=== PATIENT | female | born 2005 | race Caucasian/White ===

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

== ENCOUNTER 2025-02-19 08:41 | Emergency (ER) | payer OTHER, SELFPAY ==
--- NOTE | 2025-02-19 08:44 | ED.EAR ---
HPI - Ear Problem General Chief complaint: Ear Stated complaint: Ears Irritation Time Seen by Provider: 02/19/25 09:20 Source: patient, RN notes reviewed and old records reviewed Mode of arrival: ambulatory Limitations: no limitations History of Present Illness HPI Narrative: 20-year-old female presents to the [facility] with left ear burning, decreased hearing, irritation. Left ear started on Wednesday, 3 days ago, right ear started with similar symptoms yesterday. No treatment prior to arrival. Patient does use Q-tips Related Data Home Medications ?Medication ?Instructions ?Recorded ?Confirmed ?Last Taken ?Type insulin lispro 100 unit/mL 100 sliding scale dose subcut DAILY 07/19/22 07/25/23 Unknown History subcutaneous cartridge (Humalog U-100 Insulin) pantoprazole 40 mg tablet,delayed 40 mg PO DAILY 07/19/22 07/25/23 Unknown History release fluoxetine 40 mg capsule 40 mg PO DAILY 11/13/22 07/25/23 Unknown History amitriptyline 100 mg tablet mg 09/28/23 Unknown History norethindrone (contraceptive) 0.35 mg 02/19/25 Unknown History mg tablet Allergies Allergy/AdvReac Type Severity Reaction Status Date / Time adhesive tape Allergy Rash Verified 09/28/23 13:06 Review of Systems Review of Systems: All systems reviewed & are unremarkable except as noted in HPI and below Constitutional: Constitutional: Reports no additional constitutional complaints ENT: Reports as per HPI Cardiovascular: Cardiovascular: Reports no additional cardiovascular complaints, Denies chest pain and Denies dyspnea Respiratory: Respiratory: Reports no additional respiratory complaints, Denies chest congestion, Denies cough and Denies dyspnea Musculoskeletal: Musculoskeletal: Reports no additional musculoskeletal complaints Integumentary/Breasts: Skin/Breast: Reports system reviewed and no additional complaints, except as docu PMF Past Medical History Medical History Diabetes type I Surgical History Surgical History History of appendectomy History of exploratory laparotomy Social History Social History Living arrangements: with family Gender identity (if verbalized by the patient): Female Comments At the time of my signature, I reviewed and agree with the nursing past medical, surgical, social, and family history. There is no relevant family history pertinent to the patient complaint. Exam Const: General: cooperative, healthy appearing, comfortable, no acute distress, well developed, alert and well nourished Nutritional Appearance: well nourished Orientation/consciousness: patient oriented x3 Limitations: no limitations HENMT: Head: normal to inspection Ears: hearing grossly normal bilaterally, external ears normal, TM's normal bilaterally and Abnormal EAC present erythema bilateral, edema on the left and EAC tenderness on the left; no foreign body and no otic discharge Mouth: Yes Normal oral and palatal mucosa present, Yes lip normal, Yes tongue normal and Yes moist mucous membranes Throat: posterior oropharynx normal, uvula midline and no uvular edema Eyes: General: appearance normal, both eyes and all related structures Alignment and Position: alignment normal Neck: Neck: normal visual inspection, full ROM, no lymphadenopathy and no meningeal signs Chest: Chest palpation & inspection: normal inspection of the chest Resp: Effort & Inspection: normal respiratory effort and able to speak in complete sentences Auscultation: clear to auscultation bilaterally, no crackles, no rales, no rhonchi and no wheezes Cardio: Rate: regular rate Skin: General skin exam: normal color and no rashes or lesions noted Neuro: General: patient oriented x3, gait normal, moves all extremities and no meningeal signs Cognition (Neuro): normal cognition Speech: normal speech Gait exam (Neuro): Normal gait present Extrem: General: normal to inspection, full ROM, capillary refill normal and normal gait Psych: Appearance: grossly normal and well kempt Mental Status: mental status grossly normal Speech and movement: Normal speech and movement present and Clear speech present Affect: normal affect Attitude: cooperative Course Course Level of Care: Express Care Visit Vital Signs Vital signs: Vital Signs Temperature 97.2 F L 02/19/25 08:54 Pulse Rate 89 02/19/25 08:54 Respiratory Rate 16 02/19/25 08:54 Blood Pressure 114/62 02/19/25 08:54 Pulse Oximetry 100 02/19/25 08:54 Oxygen Delivery Room Air 02/19/25 08:54 Temperature 97.2 F L 02/19/25 08:54 Pulse Rate 89 02/19/25 08:54 Respiratory Rate 16 02/19/25 08:54 Blood Pressure 114/62 02/19/25 08:54 Pulse Oximetry 100 02/19/25 08:54 Oxygen Delivery Room Air 02/19/25 08:54 Reviewed Medical Decision Making MDM Narrative Medical decision making narrative: Patient sitting comfortably in exam room. Nontoxic, vitals stable. Patient in no acute distress Patient presents for left ear discomfort, dryness and mild erythema, mild edema noted to the ear canal. TMs are within normal limits. Patient appropriate for outpatient treatment with early otitis externa, will prescribed ear drops. Discussed not putting anything in her ears. Discharge instructions reviewed with patient, as well as provided in writing per nursing staff. The instructions also include specific and strict return/GO TO THE ER as well as f/u information. All questions have been answered, and the patient deny any further questions with discharge and discharge plan. Some parts of this dictation were generated by voice recognition software and may contain typographical and/or grammatical inaccuracies. Differential Diagnosis Differential Diagnosis: Otitis media, serous otitis, otitis externa Medical Records Medical records reviewed: Yes I reviewed the external patient's medical records. Vital Signs Vital Signs: Vital Signs Temperature 97.2 F L 02/19/25 08:54 Pulse Rate 89 02/19/25 08:54 Respiratory Rate 16 02/19/25 08:54 Blood Pressure 114/62 02/19/25 08:54 Pulse Oximetry 100 02/19/25 08:54 Oxygen Delivery Room Air 02/19/25 08:54 Temperature 97.2 F L 02/19/25 08:54 Pulse Rate 89 02/19/25 08:54 Respiratory Rate 16 02/19/25 08:54 Blood Pressure 114/62 02/19/25 08:54 Pulse Oximetry 100 02/19/25 08:54 Oxygen Delivery Room Air 02/19/25 08:54 Reviewed Lab Data Lab results reviewed: Yes I reviewed the patient's lab results. Labs: Reviewed Critical Care Time Critical Care Time Critical Care Time: No Discharge Plan Discharge Clinical Impression: Otitis externa Qualifiers: Otitis externa type: unspecified type Chronicity: acute Laterality: left Qualified Code(s): H60.502 - Unspecified acute noninfective otitis externa, left ear Patient Disposition: Home Condition: Stable Instructions: Antibiotic Form, Swimmer's Ear (ED), Earache (ED) Additional Instructions: Do not put anything in your ears especially Q-tips. Avoid wearing ear buds. Use ear drops as prescribed Follow-up with primary care provider this week For worsening symptoms go directly to the emergency room Patient Language: Latvian Prescriptions: New rymovckj-kynllkoeb-DZ 3.5-10,000-1 mg/mL-unit/mL-% drops,suspension 4 drp EACH EAR Q6H 7 Days Qty: 10 0RF No Action (DME) Aerochamber MV Spacer See Rx Instructions .Route Qty: 1 0RF Rx Instructions: As directed albuterol sulfate 90 mcg/actuation HFA aerosol inhaler 2 puff inhalation QID PRN (Reason: shortness of breath or wheezing) Qty: 6.7 0RF amitriptyline 100 mg tablet norethindrone (contraceptive) 0.35 mg tablet pantoprazole 40 mg tablet,delayed release (DR/EC) 40 mg PO DAILY Humalog U-100 Insulin 100 unit/mL cartridge 100 sliding scale dose subcut DAILY fluoxetine 40 mg capsule 40 mg PO DAILY Follow-up/Referrals: Ron,SHANIA Hernandez [Primary Care Provider] - 3 Days ([facility] follow-up) Stand Alone Forms: Work/School Release IP Time of Disposition: 09:28
[2025-02-19 08:54] VITALS: BP 114/62; PULSE 89; RESP 16; TEMP 36.2; O2SAT 100
== END 2025-02-19 09:40 | disposition home or self-care (01) ==
PROVIDERS: Emergency Provider Nurse Practitioner; PCP Physician Assistant
DX: H60.502 Unspecified acute noninfective otitis externa, left ear (principal); E10.9 Type 1 diabetes mellitus without complications; Z79.4 Long term (current) use of insulin
CPT/HCPCS: 99213; G0463

== ENCOUNTER 2025-04-22 14:44 | Inpatient (IN) | payer OTHER, SELFPAY ==
[2025-04-22] VITALS (7 sets, daily range): BP systolic 117–136; BP diastolic 72–84; PULSE 90–121; RESP 14–22; TEMP 36.5–36.8; O2SAT 98–99; BMI 31.6
--- NOTE | ~2025-04-22 | XR_ITS ---
CHEST RADIOGRAPH CLINICAL HISTORY: CHASE . COMPARISON: 07/25/2023 TECHNIQUE: Single portable view of the chest. FINDINGS The cardiomediastinal silhouette is unremarkable. The lungs are clear. Visualized osseous structures and soft tissues are unremarkable. IMPRESSION: No focal infiltrate or effusion. Reviewed, dictated and finalized at location A.
--- OUTSIDE RECORDS SUMMARY | 2025-04-22 14:46 | XMS_ITS | Continuity of Care Document ---
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 Role Phone Marjorie Kuhn OT Unavailable Unavailable Procedures Procedure Date Identified as not an unhealthy alcohol u ser Not identified as unhealthy alcohol via screening OT Re-Evaluation Therapeutic Activities Neuromuscular Re-Ed Therapeutic Exercise Manual Therapy Hot or Cold Pack Therapeutic Activities Neuromuscular Re-Ed Therapeutic Exercise Manual Therapy Hot or Cold Pack Therapeutic Activities Neuromuscular Re-Ed Therapeutic Exercise Manual Therapy Hot or Cold Pack Therapeutic Activities Neuromuscular Re-Ed Therapeutic Exercise Manual Therapy Hot or Cold Pack Therapeutic Activities Neuromuscular Re-Ed Therapeutic Exercise Manual Therapy Hot or Cold Pack Therapeutic Activities Neuromuscular Re-Ed Therapeutic Exercise Manual Therapy Hot or Cold Pack Identified as not an unhealthy alcohol u ser Not identified as unhealthy alcohol via screening OT Evaluation Low Complexity Therapeutic Activities Neuromuscular Re-Ed Therapeutic Exercise Hot or Cold Pack Manual Therapy Therapeutic Activities Neuromuscular Re-Ed Manual Therapy Therapeutic Exercise Therapeutic Activities Neuromuscular Re-Ed Therapeutic Exercise Manual Therapy Therapeutic Activities Neuromuscular Re-Ed Therapeutic Exercise Manual Therapy Hot or Cold Pack Therapeutic Activities Neuromuscular Re-Ed Therapeutic Exercise Manual Therapy Hot or Cold Pack Therapeutic Activities Neuromuscular Re-Ed Therapeutic Exercise Manual Therapy Hot or Cold Pack Therapeutic Activities Neuromuscular Re-Ed Therapeutic Exercise Manual Therapy Hot or Cold Pack Therapeutic Activities Therapeutic Exercise Neuromuscular Re-Ed Manual Therapy PT Evaluation Moderate Complexity Neuromuscular Re-Ed Therapeutic Exercise Manual Therapy Advance Directives Directive Yes / No Effective Date File Name No Information Encounters Encounter Description Practice Location Reason(s) For Visit Diagnoses Date Provider Providers Copied on Encounter [facility] [address], [place], [place], [id number], [place] tel:[phone] [place] No Information Hattie Amador. . Referring Provider: Luciano Kutnik M, [address], [place], [address]. tel:[phone] [facility], [address], [place], [place], [id number], [place] tel:[phone] [place] No Information 4 Kunh Marjorie. . Referring Provider: Luciano Cintron, [address], [place], [address]. tel:[phone] [facility], [address], [place], [place], [id number], [place] tel:[phone] [place] No Information 4 Kuhn Marjorie. . Referring Provider: Luciano Cintron, [address], [place], [address]. tel:[phone] [facility], [address], [place], [place], [id number], [place] tel:[phone] [place] No Information 4 Kuhn Marjorie. . Referring Provider: Luciano Cintron, [address], [place], [address]. tel:[phone] [facility], [address], [place], [place], [id number], [place] tel:[phone] [place] No Information 4 Kuhn Marjorie. . Referring Provider: Luciano Cintron, [address], [place], [address]. tel:[phone] [facility], [place], [place], [id number], [place] tel:[phone] [place] No Information 0 4 Kuhn Marjorie. . Referring Provider: Luciano Cintron, [address], [place], [address]. tel:[phone] [facility], [address], [place], [place], [id number], [place] tel:[phone] [place] No Information 4 Hattie Amador. . Referring Provider: Luciano Cintron, [address] [facility] [address], [place], [address]. tel:[phone] [facility] [address] [facility] [address], [place], [place], [id number], [place] tel:[phone] [place] No Information 4 Modglin Calixto. . Referring Provider: Edgardo Cruz, [address] [place] [address] [address], [place], [address]. tel:[phone] [facility] [facility] [address], [place], [place], [id number], [place] tel:[phone] [place] No Information 4 Modglin Calixto. . Referring Provider: Edgardo Cruz, [address] [place] [address] [address], [place], [address]. tel:[phone] [facility] [address], [place], [place], [id number], [place] tel:[phone] [place] No Information 4 Muehl Harvey. [address] [facility], [address], [place], [facility], [place]. tel:[phone] Referring Provider: Edgardo Cruz, [address] [facility] [address], [place], [address]. tel:[phone] [facility] [facility] [address], [place], [place], [id number], [place] tel:[phone] [place] No Information 4 Muehl Harvey. [address] [facility], [address], [place], [address], [place]. tel:[phone] Referring Provider: Edgardo Cruz, [address] [facility] [address], [place], [address]. tel:[phone], [id number], tel:[phone] [place] No Information 4 Cezarehl Harvey. [address] [place] [address], [place] [address], . tel: [phone] Referring Provider: Edgardo Cruz, [address] [place] [address] [place] [address], [facility]. tel:[phone], [id number], tel:[phone] [place] No Information 4 Michaell Harvey. [address] [place] [address], [address] [place] [address], . tel: [phone] Referring Provider: Edgardo Cruz, [address] [place] [address], [facility]. tel:[phone], [id number], tel:[phone] [place] No Information 4 Ankushglin Calixto. . Referring Provider: Edgardo Cruz, [address] [place] [address], [facility]. tel:[phone], [id number], tel:[phone] [place] No Information 4 Michaell Harvey. [address] [place] [address], [facility] [address] [address], . tel:[phone] Referring Provider: Edgardo Cruz, [address] [place] [address] [place] [address], [facility]. tel:[phone] Family History Family Member Type Diagnosis Age At Onset No Information Payers Payer name Insurance type Covered republican ID Chuck laws(s) Lien-LOP LI 00 Social History Type Description Quantity Date Captured Comments Alcohol Use Details Unknown Caffeine Use Details Unknown Tobacco Use Status Current non-smoker Smoking Status Never smoker Non-Smoking Tobacco Use Details : No Details Available : No Details Available Sex Female Chief Complaint And Reason For Visit No Information Reason For Referral Reason For Referral No Information History Of Present Illness Encounter Date Complaint History Of Prese nt Illness No Information Functional Status Date Functional Assessmen t No Information Instructions Date Instruction Additional Infor mation No Information Assessments Type Assessment Date No Information Patient Care Teams Name Effective Dates (start - stop) Status Members No Information
--- OUTSIDE RECORDS SUMMARY | 2025-04-22 14:46 | XMS_ITS | Referral Summary ---
Author Organization [facility] Address [address] [place] [address] Care Team Providers Care Production Illustrator Name Role Phone Chad Guo MD Unavailable [phone] Thaddeus Madsen DPT Unavailable [phone] Mary Velasquez Primary Care Provider [phone] Encounters Date Type Department Care Team Description 04/05/2025 Telephone [facility] Endocrinology Metabolism and Lipid [address] [facility] 5th [place] [address] [place] [phone] Shana Ley RN Prior Auth (Insulin Lispro 100UNIT/ML solution) 03/23/2025 Telephone [facility] Obstetrics and Gynecology [address] [facility] 7th Floor [address] [place] [address] Karis Graf RN 03/16/2025 8:35 PM CDT Anesthesia Event [facility] Operating Room [address] [place] [phone] Greyson Rai MD Hall, Jill Marie, NP 03/16/2025 11:00 AM CDT - 03/16/2025 1:35 PM CDT Hospital Encounter [facility] Operating Room [address] [place] [phone] Dee Yanes MD Discharge Disposition: Discharge to home or self care from Last 3 Months Allergies Active Allergy Reactions Criticality Noted Date Comments Adhesive Rash Medium Band-aid;Latex adhesive only Latex Itching Low 05/20/2019 Itching Medications lancets misc test 6-8x per day Active acetone, urine, test strip by in vitro route 015 Active blood-glucose meter,continuous misc Use with [employer] G6 sensors and transmitter to monitor blood sugars Active blood glucose diagnostic (OneTouch Ultra Blue Test Strip) stripIndications :Type 1 diabetes mellitus with hyperglycemia (HCC) Use as directed to test blood sugar 5-7 times daily. 600 each 3 021 Active pen needle, diabetic 31 gauge x 5/16 needle Use as directed 6-8 times daily 100 each 11 022 Active Additional Information Patient not taking.Reported on 12/19/[address] (PROTONIX) 40 mg EC tabletIndication s:Treatment of Non-Bleeding Gastric Disorder Take 1 tablet (40 mg total) by mouth 2 (two) times a day 60 tablet 1 022 Active FLUoxetine (PROzac) 20 mg capsuleIndicatio ns:depression Take 30 mg by mouth daily before breakfast 022 Active Baqsimi 3 mg/actuation spray,non-aeroso l Administer 1 spray (3 mg total) into one nostril as needed (for severe hypoglycemia) 2 each 3 023 Active albuterol HFA (PROVENTIL HFA,VENTOLIN HFA,PROAIR HFA) 90 mcg/actuation inhaler Inhale 1 puff every 6 (six) hours as needed for wheezing or shortness of breath 023 Active ibuprofen (ADVIL,MOTRIN) 200 mg tab/cap Take 2 tablet/capsule (400 mg total) by mouth every 6 (six) hours as needed for pain or headaches 024 Active hydrOXYzine (ATARAX) 25 mg tabletIndication s:anxiety,sleep Take 1 tablet (25 mg total) by mouth nightly 024 Active topiramate (TOPAMAX) 100 mg tabletIndication s:Migraine Prevention Take 1 tablet (100 mg total) by mouth nightly 024 Active norethindrone (MICRONOR) 0.35 mg tabletIndication s: Contraception Take 1 tablet (0.35 mg total) by mouth daily 84 tablet 4 024 2024 Active Additional Information Patient taking differently:1 tablet oralNightly, Indications: Contraception, Informant: Self, Reported on 03/16/2025 insulin glargine (LANTUS) 100 unit/mL (3 mL) pen for injectionIndicat ions:Type 1 diabetes mellitus with hyperglycemia (HCC) Inject 29 units under the skin daily. Use 1-2 units to prime pen. TDD 34 units 30 mL 1 025 Active Additional Information Patient taking differently: 29 Units subcutaneous Nightly, Inject 29 units under the skin daily. Use 1-2 units to prime pen. TDD 34 units,Indications: type 1 diabetes, Reported on 03/16/2025 magnesium gluconate 200 mg tabletIndication s:health Take 1 tablet (200 mg total) by mouth daily before breakfast Active HumaLOG 100 unit/mL vial for injectionIndicat ions:Type 1 diabetes mellitus with hyperglycemia (HCC) USE DIRECTED VIA INSULIN PUMP, DAILY DOSE IS 70 UNITS 70 mL 025 Active insulin lispro (HumaLOG, ADMELOG) 100 unit/mL vial for injectionIndicat ions:type 1 diabetes mellitus Inject under the skin 3 (three) times a day before meals 1 unit for every 6 carbs and 1 units for every 50 units over 120 2024 Discontinued insulin lispro (HumaLOG, ADMELOG) 100 unit/mL vial for injectionIndicat ions:Type 1 diabetes mellitus with hyperglycemia (HCC) USE DIRECTED VIA INSULIN PUMP, DAILY DOSE IS 70 UNITS 70 mL 025 2024 Discontinued(A lternate therapy) Active Problems Problem Noted Date Diagnosed Date Pelvic pain 12/19/2024 Sleep-disordered breathing 10/21/2022 Assessment & Plan (10/21/2022 12:12 PM DIRECTOR OF MARKETING COMMUNICATIONS): Plan tonsillectomy and adenoidectomy. - Discussed risks, benefits, and alternatives. Reviewed risks, including anesthesia, pain, bleeding, injury to lips, teeth, gums and tongue, dehydration, scarring, velopharyngeal insufficiency, voice changes, regrowth of tissue. - Reviewed postoperative care: 1-2 weeks off school/daycare, and 2 weeks of light activity and soft diet, with emphasis on fluid hydration, red or purple coloring, straws and dairy are fine to drink. - informational paperwork, including description of surgery, risks, and postop care provided All questions were answered and they would like to proceed. Chronic adenotonsillitis 10/21/2022 Assessment & Plan (11/26/2022 3:20 PM DIRECTOR OF MARKETING COMMUNICATIONS): Continue increased fluids for one more week Return to regular activity next week Return to regular diet as tolerated Follow up as needed Assessment & Plan (11/20/2022 2:00 PM DIRECTOR OF MARKETING COMMUNICATIONS): Continue increased hydration and light activity Miraalax if needed Assessment & Plan (10/21/2022 12:12 PM DIRECTOR OF MARKETING COMMUNICATIONS): Plan tonsillectomy and adenoidectomy. - Discussed risks, benefits, and alternatives. Reviewed risks, including anesthesia, pain, bleeding, injury to lips, teeth, gums and tongue, dehydration, scarring, velopharyngeal insufficiency, voice changes, regrowth of tissue. - Reviewed postoperative care: 1-2 weeks off school/daycare, and 2 weeks of light activity and soft diet, with emphasis on fluid hydration, red or purple coloring, straws and dairy are fine to drink. - informational paperwork, including description of surgery, risks, and postop care provided All questions were answered and they would like to proceed. Diabetic ketoacidosis withou t coma associated with type 1 diabetes mellitus 05/30/2022 Analgesic overuse headache 06/26/2020 Migraine without aura and wi thout status migrainosus, not intractable 06/26/2020 Right wrist tendinitis 06/21/2020 Acute post-operative pain 04/04/2020 Assessment & Plan (04/06/2020 10:15 AM CDT): Currently on hydromorphone TROLLEY COACH DRIVER, methocarbamol 1000mg q8, ketorolac 30mg qh, acetaminophen 1000mg q6h. Management per surgery Assessment & Plan (04/05/2020 9:54 AM CDT): Currently on hydromorphone TROLLEY COACH DRIVER, methocarbamol 1000mg q8, ketorolac 30mg qh, acetaminophen 1000mg q6h. Management per surgery Free intraperitoneal air 04/02/2020 Overview (04/02/2020): Added automatically from request for surgery [id number] Assessment & Plan (04/06/2020 10:15 AM CDT): Plan per surgery. Assessment & Plan (04/05/2020 9:53 AM CDT): Plan per surgery. Migraines 12/15/2019 Overview (06/21/2020): Last Assessment & Plan: Stable. Continue management per neurology -Continue home amitriptyline Assessment & Plan (06/06/2019 7:30 AM CDT): Stable. -Continue home amitriptyline Assessment & Plan (06/05/2019 3:45 PM CDT): Stable. -Continue home amitriptyline Current moderate episode of major depressive disorder without prior episode 12/15/2019 Assessment & Plan (04/06/2020 10:17 AM CDT): Per psychology evaluation, since the custodial in place order, Jenna has endorsed more frequent symptoms of irritability, fatigue, isolation and decreased interest in activities. It is reassuring she continues to not endorse feelings of suicidal intent or ideation and is currently receiving outpatient therapy arranged by her primary thread weaver. Thus far, family is more comfortable with non pharmacologic interventions for managing Jenna's symptoms of depressed mood but with the most recent fall related to intense feelings and the seemingly accidental administration of insulin, it seems prudent to continue to observe Jenna for proper use of the instruments used to manage her diabetes. It is reassuring family has implemented restricted access to the pump with a code that only parents and nursing staff knows and Jenna understands the mistake she made yesterday and the consequences of the action. Plan - continue to evaluate safety of continued use of insulin pump - s/p diabetes re-education Assessment & Plan (04/05/2020 2:03 PM CDT): Per psychology evaluation, since the custodial in place order, Jenna has endorsed more frequent symptoms of irritability, fatigue, isolation and decreased interest in activities. It is reassuring she continues to not endorse feelings of suicidal intent or ideation and is currently receiving outpatient therapy arranged by her primary thread weaver. Thus far, family is more comfortable with non pharmacologic interventions for managing Jenna's symptoms of depressed mood but with the most recent fall related to intense feelings and the seemingly accidental administration of insulin, it seems prudent to continue to observe Jenna for proper use of the instruments used to manage her diabetes. Plan - continue to evaluate safety of continued use of insulin pump - re engage diabetes education for re education about the insulin pump policy while inpatient. Acne vulgaris 12/15/2019 Pain of left calf 12/15/2019 Flat foot 09/12/2019 Oral contraceptive use 06/05/2019 Assessment & Plan (06/06/2019 7:32 AM CDT): Continue home OCP. Assessment & Plan (06/05/2019 3:45 PM CDT): Continue home OCP. S/P laparoscopic appendectomy 06/05/2019 Assessment & Plan (06/06/2019 7:32 AM CDT): S/p scheduled appendectomy for a large appendicolith on 06/05. -surgery primary -pain regimen per surgery: ibuprofen and tylenol PRN Assessment & Plan (06/05/2019 3:47 PM CDT): S/p scheduled appendectomy for a large appendicolith on 06/05. -surgery primary -pain regimen per surgery: ibuprofen and tylenol PRN -CLD-advance as tolerated per surgery Right lower quadrant abdominal pain 05/30/2019 Overview (05/30/2019): Added automatically from request for surgery [id number] Appendicolith 05/30/2019 Overview (05/30/2019): Added automatically from request for surgery [id number] Nocturnal hypoglycemia 05/03/2017 Type 1 diabetes 08/08/2009 Assessment & Plan (04/06/2020 10:15 AM CDT): Jenna is a 15 year old female with history of type 1 diabetes with most recent A1C of 5.3%. At baseline she uses an insulin pump in conjunction with a continuous glucose monitor. In the last 24 hours, her glucose has been between 81-108 while on D5 NS. The sites for her glucose monitor and insulin pump were changed yesterday and do not appear to show signs of infection or leaking insulin. As she transitions to regular diet, monitoring of glucoses should be continued to ensure proper management of insulin regimen. Plan - Continue insulin dose with ICR of 9, ISF of 50 and Target of 120. - Continue to monitor glucoses every 6 hours with POCT glucoses with meals and snacks, OK to dose insulin during or after meals as PO becomes more predictable - When taking acceptable PO and off Dextrose containing fluids, decrease basal rate to 1.4u/hr and place insulin pump into sleep mode - Free to discharge after discontinued from fluids and glucoses have been stable thereafter, likely after lunch - Continue glucagon kit in case of hypoglycemia Assessment & Plan (04/05/2020 12:21 PM CDT): Jenna is a 15 year old female with history of type 1 diabetes with most recent A1C of 5.3%. At baseline she uses an insulin pump in conjunction with a continuous glucose monitor. In the last 24 hours, her glucose has been between 81-108 while on D5 NS. The sites for her glucose monitor and insulin pump were changed yesterday and do not appear to show signs of infection or leaking insulin. As she transitions to regular diet, monitoring of glucoses should be continued to ensure proper management of insulin regimen. Plan - Continue insulin dose with ICR of 9, ISF of 50 and Target of 120. - Continue to monitor glucoses every 6 hours with POCT glucoses with meals and snacks, OK to dose insulin during or after meals as PO becomes more predictable - When taking acceptable PO and off Dextrose containing fluids, decrease basal rate to 1.4u/hr and place insulin pump into sleep mode - ADAT per surgery - Continue glucagon kit in case of hypoglycemia Assessment & Plan (04/04/2020 2:05 PM CDT): Jenna is a 15 year old female with history of type 1 diabetes with most recent A1C of 5.3%. At baseline she uses an insulin pump in conjunction with a continuous glucose monitor. In the last 24 hours, her glucose has been between 81-131 while on D5 NS. The sites for her glucose monitor and insulin pump are to be changed today and do not appear to show signs of infection or leaking insulin. As she transitions to regular diet, monitoring of glucoses should be continued to ensure proper management of insulin regimen. Plan - Continue to insulin dose with ICR of 9, ISF of 50 and Target of 120. - Continue to monitor glucoses every 6 hours with POCT glucoses with meals and snacks - Diet per surgery recommendations but will closely follow glucose trends during this transition - Continue glucagon kit incase of hypoglycemia - Psychology has been consulted Assessment & Plan (04/03/2020 6:48 PM CDT): Jenna is a 15 year old female with history of type 1 diabetes with most recent A1C of 5.3%. At baseline she uses an insulin pump in conjunction with a continuous glucose monitor. Since admission her glucose has been between 102-217 while on D5 NS. As she transitions to regular diet, monitoring of glucoses should be continued to ensure proper management of insulin regimen. Plan - Continue to insulin dose with ICR of 9, ISF of 50 and Target of 120. - Continue to monitor glucoses every 6 hours with POCT glucoses with meals and snacks - Diet per surgery recommendations but will closely follow glucose trends during this transition - Continue glucagon kit incase of hypoglycemia - Assessment & Plan (06/06/2019 7:32 AM CDT): Jenna is a 14 year old w/ PMH of well-controlled Type 1 DM and migraines, s/p scheduled appendectomy for a large appendicolith on 06/05. She is drinking fluids and eating small amounts of fluids. She continues with her pump and CGM. POCT glucoses have been stable. - continue home humalog pump with corrections off pump - diabetic diet - POCT glucose before meals, before bed, 0200, and PRN - check ketones for glucoses >250, call endo for dosing if ketones greater than small Assessment & Plan (06/05/2019 3:44 PM CDT): Jenna is a 14 year old w/ PMH of well-controlled Type 1 DM and migraines, s/p scheduled appendectomy for a large appendicolith on 06/05. She is currently on a clear liquid diet and dextrose containing fluids. Glucoses have been stable. - continue home humalog pump with corrections off pump - CLD- advance as tolerated per surgery - D5+1/2 NS @ maintenance - POCT q4 while on dextrose fluids and on clears - check ketones for glucoses >250, call endo for dosing Resolved Problems Problem Noted Date Diagnosed Date Resolved Date Obstructive sleep apnea 08/08/201805/09 Snoring 07/18/2018 06/01/2019 Immunizations Immunization Administration Dates Next Due DTaP 06/18/2005, 4,2004,03/05 DTaP / IPV 03/05/2009, 5,2004,03/05 DTaP,IPV,Hib,HepB (Vaxelis) 03/05/2009,0 01/08/2005,2004,03/05 Hep A, Pediatric 07/22/2012,01/19/2012 Hep A, Unspecified 07/22/2012,01/19/2012 Hep B Vaccine 2004,2004,2004 Hep B, Adolescent or Pediatric 2004,2003,2004 HiB 04/02/2005, 4,2004,03/05 Hib (PRP-OMP) 04/02/2005, 4,2004,03/05 IPV 03/05/2009, 5,2004,03/05 Influenza LAIV (Nasal) 11/16/2012 Influenza, Quadrivalent, Spl it, Preservative Free, Intramuscular 08/18/2021,08/19/2018 Influenza, Split 2004 Influenza, Unspecified 08/19/2018,2017,11/16/2012,09/29 MMR 03/05/2009,01/08/2005 Meningococcal MCV4P (Menactra) 08/18/2021,2014 Pneumococcal Conjugate 7-Valent 04/02/20 05,2004,2004,03/05 Tdap 06/14/2015, 9,06/18/2005,07/07,2004,2004 Varicella 03/05/2009,01/08/2005 Social History Tobacco Use Types Packs/Day Years Used Date Smoking Tobacco: Former Vaping Q uit: 10/2024 Smokeless Tobacco: Never Tobacco Cessation:Counseling Given: Not Answered Alcohol Use Standard Drinks/Week Comments Yes 0 (1 standard drink = 0.6 oz pur e alcohol) Drinks occassionally AUDIT-C Answer Date Recorded Q1: How often do you have a drink containing alcohol? Never 02/23/2025 Q2: How many drinks containi ng alcohol do you have on a typical day when you are drinking? Patient does not drink Q3: How often do you have si x or more drinks on one occasion? Never 02/23/2025 PHQ-2 Answer Date Recorded PHQ-2 Total Score (If total score is 3 or more points, staff should administer the PHQ-9) 2 02/26/2022 Exercise Vital Sign Answer Date Recorde d Days of Exercise per Week 4 days 2018 Minutes of Exercise per Session 50 min 04/07/2019 Personal Safety Answer Date Recorded Have you ever been in or are you currently in a harmful physical or emotional relationship or is someone making you feel afraid or unsafe? Denies 03/16/2025 Comments No Sex and Gender Information Value Date Recorded Sex Assigned at Not on file Legal Sex Female 11:02 AM DIRECTOR OF MARKETING COMMUNICATIONS Gender Identity Not on file Sexual Orientation Not on file Last Filed Vital Signs Vital Sign Reading Time Taken Comments Blood Pressure 131/83 03/16/2025 1:00 PM CDT Pulse 98 03/16/2025 1:00 PM CDT Temperature 37.4 C (99.3 F) 03/16/2025 1:00 PM CDT Respiratory Rate 18 03/16/2025 1:00 PM CDT Oxygen Saturation 98% 03/16/2025 1:00 PM CDT Inhaled Oxygen Concentration - - Weight 79.4 kg (175 lb) 03/16/2025 12:56 PM CDT Height 160 cm (5' 3) 03/16/2025 12:56 PM CDT Body Mass Index 31 03/16/2025 12:56 PM CDT Plan of Treatment Not on file Procedures Procedure Name Priority Date/Time Associated Diagnosis Comments POCT GLUCOSE DEVICE Routine 03/16/2025 1 :20 PM CDT POC BLOOD GAS AND CHEMISTRIES, VENOUS Routine 03/16/2025 12:41 PM CDT POCT GLUCOSE DEVICE Routine 03/16/2025 1 2:38 PM CDT POCT HEMOGLOBIN A1C Routine 06/22/2024 1 :12 PM CDT Type 1 diabetes mellitus with hyperglycemia (HCC) THYROID FUNCTION CASCADE Routine 02/23/2024 2:30 PM CDT Abnormal uterine bleeding (AUB) N. GONORRHOEAE/C. TRACHOMATIS AMPLIFICATION STAT 08/11/2022 2:38 PM CDT EGFR STAT 08/11/2022 12:28 PM CDT from Last 3 Months or Most Recently Relevant to Health Maintenance Results * (ABNORMAL) POCT glucose (03/16/2025 1:20 PM CDT) Glucose, POC 359(H) 70 - 199 mg/dL Blood 03/16/2025 1:20 PM CDT 03/16/2025 1:20 PM CDT us Dee Yanes MD LAB POCT ORDERABLES - DEV ICE Final Result CHELLE SMITH [facility] Department of Laboratories [place], [place] [id number] * (ABNORMAL) POC Blood Gas and Chemistries, Venous - (03/16/2025 12:41 PM CDT) pH, Jeff POC 7.41 7.32 - 7.43 pCO2, jeff POC 36(L) 40 - 50 mmHg [facility] pO2, jeff POC 66 mmHg [facility] Na, POC 135 135 - 145 mmol/L [facility] K POC 4.8 3.3 - 4.9 mmol/L [facility] Comment: Interpretive Data Not all point of care methods assess for hemolysis. Confirm with instrument and retest K+ if not consistent with clinical signs and symptoms. Current Interpretive Data was last revised on 2024. Cl, POC 106 97 - 110 mmol/L [facility] Ionized Ca, POC 4.88 4.50 - 5.10 mg/dL [facility] Glucose, POC 523(C) 70 - 199 mg/dL [facility] Lactate POC 1.5 0.7 - 2.0 mmol/L [facility] O2 Sat, Jeff POC (Trini) 94 % [facility] Base excess, POC -1.4 mmol/L [facility] HCO3, Jeff POC 23 20 - 30 mmol/L [facility] Hct, POC 38.0 36.3 - 45.3 % [facility] Total Hb, POC 12.6 11.9 - 15.5 g/dL [facility] Blood 03/16/2025 12:4 1 PM CDT 03/16/2025 12:41 PM CDT Dee Yanes MD LAB POCT ORDERABLES - DEV ICE Final Result Performing Organization Address City/[facility]/ZIP Co de Phone Number [facility] Department [place] [address] * (ABNORMAL) POCT glucose (03/16/2025 12:38 PM CDT) [facility] Glucose, POC 424(H) 70 - 199 mg/dL Blood 03/16/2025 12:3 8 PM CDT 03/16/2025 12:38 PM CDT Dee Yanes MD LAB POCT ORDERABLES - DEV ICE Final Result [facility] Department [place] [address] * POCT hemoglobin A1c (06/22/2024 1:12 PM CDT) Hemoglobin A1C, POC 12 4.0 - 5.6 % Blood 06/22/2024 1:12 PM CDT Manny Camacho MD POINT OF CARE TEST ORDERABLES Fi nal Result * Thyroid Function Leslie (02/23/2024 2:30 PM CDT) Pathologist [facility] TSH 0.79 0.30 - 4.20 mcIUnit/mL Blood 02/23/2024 2:30 PM CDT 02/23/2024 3:27 PM CDT Dee Yanes MD LAB BLOOD ORDERABLES Vianca l Result Performing Organization Address City/State/[facility] Co de Phone Number [facility] Department [place] [address] * N. gonorrhoeae/C. trachomatis Amplification Urine (08/11/2022 2:38 PM CDT) Pathologist [facility] C. trachomatis Not Detected Not Detected CHELLE Comment:Testing performed by : [facility], [address] [place] [address]., [id number] N. gonorrhoeae Not Detected Not Detected CHELLE Comment: Interpretive Data Testing performed by the [facility]. This assay detects Chlamydia trachomatis and Neisseria gonorrhoeae by nucleic acid amplification testing (NAAT). This test is approved by the [place] Food and Drug Administration and the performance characteristics have been verified by the laboratory. The performance characteristics of this test have not been evaluated in individuals less than 14 years of age. Current Interpretive Data was last revised on 2019. Testing performed by: [address] [address] Urine (None) 08/11/2022 2:38 PM CDT 08/11/2022 2:46 PM CDT us Eusebia JAUREGUI LAB MICROBIOLOGY - GENERAL O RDERABLES Final Result Performing Organization Address [facility] Co de Phone Number CHELLE [address] [facility] [employer] [place] [address] * eGFR (08/11/2022 12:28 PM CDT) eGFR 109 mL/min/1. 73 m2 CHELLE Comment: Interpretive Data Reference Interval Normal >/= 90 mL/min/1.73m2 Mildly decreased* 60 - 89 mL/min/1.73m2 Mildly to moderately decreased 45 - 59 mL/min/1.73m2 Moderately to severely decreased 30 - 44 mL/min/1.73m2 Severely decreased 15 - 29 mL/min/1.73m2 Kidney Failure < 15 mL/min/1.73m2 *Relative to young adult level Estimated glomerular filtration rate is determined by the 2020 CKD-EPI equation recommended by the National Kidney Foundation (A Unifying Approach to GFR Estimation: Recommendations of the NKF-ASK Task Force on Reassessing the Inclusion of Race in Diagnosing Kidney Disease, JASN 2020). The CKD-EPI equation should not be used for patients with unstable renal function and has not been validated in children and those over 70. Current interpretive data was last reviewed 2021. Testing performed by: [facility], [address] [place] [address]., [id number] Blood 08/11/2022 12:2 8 PM CDT 08/11/2022 12:39 PM CDT us Eusebia JAUREGUI LAB BLOOD ORDERABLES Final R esult Performing Organization Address City/[facility]/ZIP Co de Phone Number CHELLE [address] [facility] [address] [place], [place] [phone] from Last 3 Months or Most Recently Relevant to Health Maintenance Insurance [facility] HMO/[place]: [place] [address] [facility] HOSPITAL HMO/PPO Address: [address] [address] [facility] HMO/PPO Address: [facility] [id number] [place] [id number] Advance Directives For more information, please contact: [phone] * Full Code (Latest Code Status on File) Date Activated Date Inactivated Comments 11/17/2022 1:26 PM 11/17/2022 7:53 PM * Full Code Date Activated Date Inactivated Comments 05/30/2022 11:40 AM 05/31/2022 2:03 PM * Full Code Date Activated Date Inactivated Comments 04/03/2020 12:41 AM 04/06/2020 4:32 PM * Full Code Date Activated Date Inactivated Comments 06/05/2019 11:15 AM 06/06/2019 2:43 PM Care Teams Production Illustrator Relationship Specialty Start Date End Date Mary Velasquez PA [address] [place] [address] PCP - General Physician Manager Market Intelligence 09/14/22 Chad Guo MD [address] [place] [address] [address] [place] [address] Referring Physician Pediatric Surgery 04/05/20 Thaddeus Madsen DPT [address] [facility] [address] [place] [address] Physical Therapist Physical Therapy 06/10/20
--- OUTSIDE RECORDS SUMMARY | 2025-04-22 14:46 | XMS_ITS | Clinical Summary ---
Author Organization [facility] ospital Address [address] [place] [address] Care Team Providers Care Equipment Planner Name Role Phone Chad Guo MD Unavailable [phone] Thaddeus Madsen DPT Unavailable [phone] Mary Velasquez Primary Care Provider [phone] Allergies Active Allergy Reactions Criticality Noted Date Comments Adhesive Rash Medium Band-aid;Latex adhesive only Latex Itching Low 05/20/2019 Itching Medications lancets misc test 6-8x per day 015 Active acetone, urine, test strip by in vitro route 015 Active blood-glucose meter,continuous misc Use with Dexcom G6 sensors and transmitter to monitor blood sugars 018 Active blood glucose diagnostic (OneTouch Ultra Blue [...] 10/21/2022 Assessment & Plan (10/21/2022 12:12 PM CHIEF OF SERVICE): Plan tonsillectomy and adenoidectomy. - Discussed risks, [...] 10/21/2022 Assessment & Plan (11/26/2022 3:20 PM CHIEF OF SERVICE): Continue increased fluids for one more week Return to regular activity next week Return to regular diet as tolerated Follow up as needed Assessment & Plan (11/20/2022 2:00 PM CHIEF OF SERVICE): Continue increased hydration and light activity Miraalax if needed Assessment & Plan (10/21/2022 12:12 PM CHIEF OF SERVICE): Plan tonsillectomy and adenoidectomy. - Discussed risks, [...] (04/06/2020 10:15 AM CDT): Currently on hydromorphone SUBSTATION INSPECTOR, methocarbamol 1000mg q8, ketorolac 30mg qh, acetaminophen 1000mg q6h. Management per surgery Assessment & Plan (04/05/2020 9:54 AM CDT): Currently on hydromorphone SUBSTATION INSPECTOR, methocarbamol 1000mg q8, ketorolac 30mg qh, acetaminophen 1000mg q6h. Management per surgery Free intraperitoneal air 04/02/2020 Overview (04/02/2020): Added automatically from request for surgery [id number] Assessment & Plan (04/06/2020 10:15 AM CDT): [...] AM CDT): Per psychology evaluation, since the correction in place order, Jenna has endorsed more frequent symptoms of irritability, fatigue, isolation and decreased interest in activities. It is reassuring she continues to not endorse feelings of suicidal intent or ideation and is currently receiving outpatient therapy arranged by her primary care program resident. Thus far, family is more comfortable with [...] PM CDT): Per psychology evaluation, since the correction in place order, Jenna has endorsed more frequent symptoms of irritability, fatigue, isolation and decreased interest in activities. It is reassuring she continues to not endorse feelings of suicidal intent or ideation and is currently receiving outpatient therapy arranged by her primary care program resident. Thus far, family is more comfortable with [...] (05/30/2019): Added automatically from request for surgery [id number] Appendicolith 05/30/2019 Overview (05/30/2019): Added automatically from request for surgery [id number] Nocturnal hypoglycemia 05/03/2017 Type 1 diabetes 08/08/2009 [...] Obstructive sleep apnea 08/08/201805/09 Snoring 07/18/2018 06/01/2019 Encounters Date Type Department Care Team Description 04/05/2025 Telephone [facility] Endocrinology Metabolism and Lipid [address] [facility] Advanced Medicine 5th [place] [address] [place] [address] Shana Ley RN Prior Auth (Insulin Lispro 100UNIT/ML solution) 03/23/2025 Telephone [facility] Obstetrics and Gynecology [address] [facility] Outpatient Health 7th Floor [address] [place] [address] Karis Graf RN 03/16/2025 8:35 PM CDT Anesthesia Event [facility] Operating Room [address] [place] [phone] Greyson Rai MD Hall, Jill Marie, NP 03/16/2025 11:00 AM CDT - 03/16/2025 1:35 PM CDT Hospital Encounter [facility] Operating Room [address] [place] [address] Dee Yanes MD Discharge Disposition: Discharge to home or self care from Last 3 Months Immunizations Immunization Administration Dates Next Due DTaP [...] 04/02/20 05,2004,2004,03/05 Tdap 06/14/2015, 9,06/18/2005,07/07,2004,2004 Varicella 03/05/2009,01/08/2005 Surgical History Surgery Date Site/Laterality Comments LAPAROSCOPIC APPENDECTOMY 06/05/2019 EXPLORATORY LAPAROTOMY 11/08/2019 - 11/07/2020 TONSILLECTOMY AND ADENOIDECTOMY 11/08/2022 - 11/07/2023 ULNAR NERVE REPAIR 11/08/2023 - 11/07/2024 Medical History Medical History Date Comments Migraines Type 1 diabetes (HCC) Migraines Inflammatory bowel disease Polycystic ovary syndrome Ovarian cyst PONV (postoperative nausea and vomiting) no delayed discharge, scopo patch helps Family History Medical History Relation Name Comments No Known Problems Father Diabetes type II Maternal Grandfather Asthma Mother Sleep apnea Paternal Grandfather Diabetes type I Sister 1 Jessy Hypothyroidism Sister 1 Jessy Anesthesia problems Neg Hx Relation Name Status Comments Father Alive Maternal Grandfather Mother Alive Paternal Grandfather Sister 1 Jessy Alive Sister 2 Manjula Alive Social History Tobacco Use Types Packs/Day Years [...] on file Legal Sex Female 11:02 AM CHIEF OF SERVICE Gender Identity Not on file Sexual Orientation Not on file Obstetrics History Para Term AB IAB SAB Ectopic Multiple Livin g Live Births 0 0 0 0 0 0 0 0 0 0 0 Last Filed Vital Signs Vital Sign Reading [...] 03/16/2025 12:56 PM CDT Plan of Treatment Health Maintenance Due Date Last Done Comments Albumin Creatinine Ratio, Urine 2004 Cervical Cancer Screening 2004 Hepatitis C Screening 2004 Pneumococcal vaccine <65 (1 of 1 - PPSV23) 01/06/2010 04/02/2005, 2004, 2004, Additional history exists Dilated Eye Exam 01/06/2014 Lipid Panel 01/06/2014 HPV Vaccines (1 - 3-dose series) 01/06/2019 Meningococcal B Vaccine (1 o f 2 - Standard) 2020 Regular Well Visit/Exam 18-64 01/06/2022 Foot Exam 05/19/2022 05/19/2021 Depression Screening 02/23/2023 02/23/2022, 05/06/20 18 Chlamydia and Gonorrhea (GC/ CT) Screening 08/11/2023 08/11/2022 eGFR 08/11/2023 08/11/2022, 10/02/2022, 05/31/2022, Additional history exists Covid-19 Vaccine (3 - 2023-2 5 season) 2024 11/18/2021, 10/28/2021 Hemoglobin A1C 12/23/2024 06/22/2024, 10/08, 01/21/2023, Additional history exists TSH Level 02/22/2025 02/23/2024, 02/2021, 05/12/2019, Additional history exists DTaP/Tdap/Td Vaccine (7 - Td or Tdap) 06/14/2025 06/14/2015, 03/05/2009, 03/05/2009, Additional history exists Influenza Vaccine (Season Ended) 2025 09/10/2022, 08/18/2021, 08/19/2018, Additional history exists Hepatitis B Screening Completed 03/05/2009 , 01/08/2005, 2004, Additional history exists Varicella Vaccines Completed 03/05/2009, 01/08/2005 Meningococcal Vaccine Completed 08/18/2021, 015 Procedures Procedure Name Priority Date/Time Associated Diagnosis [...] 1:20 PM CDT 03/16/2025 1:20 PM CDT Dee Yanes MD LAB POCT ORDERABLES - DEV ICE Final Result Performing Organization Address City/[facility]/ZIP Co de Phone Number [facility] [place] [address] * (ABNORMAL) POC Blood Gas and Chemistries, Venous - (03/16/2025 12:41 PM CDT) pH, Jeff POC 7.41 7.32 - 7.43 pCO2, jeff POC 36(L) 40 - 50 mmHg [facility] pO2, jeff POC 66 mmHg [facility] Na, POC 135 135 - 145 mmol/L [facility] K POC 4.8 3.3 - 4.9 mmol/L [facility] Comment: Interpretive Data Not all point of care methods assess for hemolysis. Confirm with instrument and retest K+ if not consistent with clinical signs and symptoms. Current Interpretive Data was last revised on 2024. Cl, POC 106 97 - 110 mmol/L [facility] Ionized Ca, POC 4.88 4.50 - 5.10 mg/dL [facility] Glucose, POC 523(C) 70 - 199 mg/dL [facility] Lactate POC 1.5 0.7 - 2.0 mmol/L [facility] O2 Sat, Jeff POC (Trini) 94 % [facility] Base excess, POC -1.4 mmol/L [facility] HCO3, Jeff POC 23 20 - 30 mmol/L [facility] Hct, POC 38.0 36.3 - 45.3 % [facility] Total Hb, POC 12.6 11.9 - 15.5 g/dL [facility] Blood 03/16/2025 12:4 1 PM CDT 03/16/2025 12:41 PM CDT Dee Yanes MD LAB POCT ORDERABLES - DEV ICE Final Result [facility] [place] [address] * (ABNORMAL) POCT glucose (03/16/2025 12:38 PM CDT) [facility] Glucose, POC 424(H) 70 - 199 mg/dL Blood 03/16/2025 12:3 8 PM CDT 03/16/2025 12:38 PM CDT Dee Yanes MD LAB POCT ORDERABLES - DEV ICE Final Result Performing Organization Address [facility] Co de Phone Number [facility] [place] [address] * POCT hemoglobin A1c (06/22/2024 1:12 PM CDT) [facility] Hemoglobin A1C, POC 12 4.0 - 5.6 % Blood 06/22/2024 1:12 PM CDT Manny Camacho MD POINT OF CARE TEST ORDERABLES Fi nal Result * Thyroid Function [place] (02/23/2024 2:30 PM CDT) [facility] TSH 0.79 0.30 - 4.20 mcIUnit/mL Blood 02/23/2024 2:30 PM CDT 02/23/2024 3:27 PM CDT Dee Yanes MD LAB BLOOD ORDERABLES Vianca l Result Performing Organization Address City/[facility]/ZIP Co de Phone Number [facility] [place] [address] * N. gonorrhoeae/C. trachomatis Amplification Urine (08/11/2022 2:38 PM CDT) [facility] C. trachomatis Not Detected Not Detected CHELLE Comment:Testing performed by : [facility] [address] [address] N. gonorrhoeae Not Detected Not Detected CHELLE CHRIS Comment: Interpretive Data Testing performed by the [facility]. This assay detects Chlamydia trachomatis and [...] last revised on 2019. Testing performed by: [facility], [address] [place] [address]., [id number] Urine (None) 08/11/2022 2:38 PM CDT 08/11/2022 2:46 PM CDT us Eusebia JAUREGUI LAB MICROBIOLOGY - GENERAL O RDERABLES Final Result CHELLE [address] [facility] Department of Laboratories [place], [place] [id number] * eGFR (08/11/2022 12:28 PM CDT) eGFR 109 mL/min/1. 73 m2 CHELLE CHRIS Comment: Interpretive Data Reference Interval Normal >/= [...] of Race in Diagnosing Kidney Disease, JASN 202). The CKD-EPI equation should not be used for patients with unstable renal function and has not been validated in children and those over 70. Current interpretive data was last reviewed 2021. Testing performed by: [facility], [address] [place] [address]., [id number] Blood 08/11/2022 12:2 8 PM CDT 08/11/2022 12:39 PM CDT us Eusebia JAUREGUI LAB BLOOD ORDERABLES Final R esult CHELLE [address] [facility] [place] [address] from Last 3 Months or Most Recently Relevant to Health Maintenance Insurance [facility] HMO/PPO Address: [address] [address] [facility] HMO/PPO Address: [address] [address] [place] [address] [facility] HMO/PPO Address: [address] [address] [place] [address] Advance Directives For more information, please contact: [phone] * Full Code (Latest Code Status on File) Date Activated Date Inactivated Comments 11/17/2022 1:26 PM 11/17/2022 7:53 PM * Full Code Date Activated Date Inactivated Comments 05/30/2022 11:40 AM 05/31/2022 2:03 PM * Full Code Date Activated Date Inactivated Comments 04/03/2020 12:41 AM 04/06/2020 4:32 PM * Full Code Date Activated Date Inactivated Comments 06/05/2019 11:15 AM 06/06/2019 2:43 PM Care Teams Equipment Planner Relationship Specialty Start Date End Date Mary Velasquez PA [facility] [place] [address] PCP - General Physician Dining Room Cashier 09/14/22 Chad Guo MD 1 [facility] [address] [place] [address] Referring Physician Pediatric Surgery 04/05/20 Thaddeus Madsen, DPT [address] [facility] [address] [place] [address] Physical Therapist Physical Therapy 06/10/20
[2025-04-22 15:09] LABS: Glucose Point of Care 462 mg/dl (65-105)
--- NOTE | 2025-04-22 15:09 | ED.RECABL ---
HPI - Recheck/Abnormal Lab/Rx General Chief Complaint: Recheck/Abnormal Lab/Rx Stated Complaint: hyperglycemia, FSBS >500, dizzy, nausea Time Seen by Provider: 04/22/25 14:45 History of Present Illness HPI narrative: 20-year-old female with history of type 1 diabetes presenting to the emergency department with hyperglycemia, dizziness, nauseousness, excess thirst and urination. She states that her blood sugars are normally in the low 200 range for last few days but today was reading high. Sure normal regimen includes 1-6 units of sliding scale insulin with meals, 29 units q.h.s. insulin. She took 30 units of short-acting insulin when she took her sugar this morning at work and it was reading high. Denies any trauma or injury, no infectious symptoms, no recent injuries or illnesses. Has been in DKA requiring ICU admission most recently 6 months prior at another hospital. Does not wear an insulin pump. Does check her sugars daily. Related Data Home Medications ?Medication ?Instructions ?Recorded ?Confirmed ?Last Taken ?Type insulin lispro 100 unit/mL 100 sliding scale dose subcut DAILY 07/19/22 07/25/23 Unknown History subcutaneous cartridge (Humalog U-100 Insulin) pantoprazole 40 mg tablet,delayed 40 mg PO DAILY 07/19/22 07/25/23 Unknown History release fluoxetine 40 mg capsule 40 mg PO DAILY 11/13/22 07/25/23 Unknown History amitriptyline 100 mg tablet mg 09/28/23 Unknown History norethindrone (contraceptive) 0.35 mg 02/19/25 Unknown History mg tablet Allergies Allergy/AdvReac Type Severity Reaction Status Date / Time adhesive tape Allergy Rash Verified 04/22/25 14:54 Review of Systems Review of Systems: As reviewed above in HPI [facility] Past Medical History Medical History Diabetes type I Surgical History Surgical History History of appendectomy History of exploratory laparotomy Social History Social History Living arrangements: with family Gender identity (if verbalized by the patient): Female Exam Narrative: GENERAL: unwell-appearing, deep respirations, no tachypnea, awake and answering questions HEAD: [Normocephalic, atraumatic.] EYES: [PERRLA and EOMI.] ENT: Nares clear, no rhinorrhea or epistaxis. Mucous membranes moist. NECK: Supple. CHEST: Deep respirations without any labor, clear breath sounds bilaterally HEART: [Regular rate and rhythm]. No murmur heard. [Normal peripheral pulses.] ABDOMEN: [Soft, nondistended], [nontender], [No rigidity or guarding] EXTREMITIES: Normal range of motion. [No edema.] SKIN: Warm, dry, no rash. NEURO: [No focal deficits]. Alert and oriented [x3.] PSYCH: [Normal mood and affect.] Course Vital Signs Vital signs: Vital Signs Temperature 36.5 C 04/22/25 14:48 Pulse Rate 121 H 04/22/25 14:48 Respiratory Rate 16 04/22/25 14:48 Blood Pressure 132/80 04/22/25 14:48 Pulse Oximetry 98 04/22/25 14:48 Oxygen Delivery Room Air 04/22/25 14:48 Temperature 36.5 C 04/22/25 14:48 Pulse Rate 121 H 04/22/25 14:48 Respiratory Rate 22 H 04/22/25 15:23 Blood Pressure 132/80 04/22/25 14:48 Pulse Oximetry 98 04/22/25 14:48 Oxygen Delivery Room Air 04/22/25 14:48 MDM - Recheck/Abnormal Lab/Rx MDM Narrative Medical decision making narrative: 20-year-old female with history of type 1 diabetes presenting to the emergency department with hyperglycemia, dizziness, nauseousness, excess thirst and urination. She states that her blood sugars are normally in the low 200 range for last few days but today was reading high. Sure normal regimen includes 1-6 units of sliding scale insulin with meals, 29 units q.h.s. insulin. She took 30 units of short-acting insulin when she took her sugar this morning at work and it was reading high. Denies any trauma or injury, no infectious symptoms, no recent injuries or illnesses. Patient clinically appears to be in diabetic ketoacidosis with her Kussmaul respirations, and tachycardia, dehydration with polyuria and polydipsia. Patient was given 2 L of fluid bolus empirically, point of care glucose obtained, VBG, beta hydroxybutyrate, CBC, CMP, urinalysis and test ordered. Chest x-ray ordered. Patient's VBG shows anion gap metabolic acidosis with a pH is 7.2, bicarb of 9.7, pCO2 of 22. She is a potassium 3.8 which will be repleted with IV potassium splinting medications prior to insulin infusion. Electrolytes otherwise show a low bicarb confirmed on ABG. Creatinine is normal. Glucose is 450. A1c elevated 12.3. LFTs mildly elevated. Beta hydroxybutyrate elevated at 5.25. Chest x-ray without any acute concerns, urinalysis without infection. Patient is in diabetic ketoacidosis requiring ICU admission. Patient received 3 L of fluid and started on potassium containing fluids. Insulin infusion started. I discussed the case with the police or patrol park officer Dr. Victor who accepted the patient to the ICU after we went over patient's clinical exam, laboratory assessments and plan of care. Spoke to the hospitalist service currently being covered by the midlevel provider who also accepted the patient to the ICU. Patient made aware of the plan and family comfortable with the admission here. Medical Records Attestation: I reviewed the patient's medical records. Lab Data Attestation: I reviewed the patient's lab results. 04/22/25 15:14 04/22/25 15:14 Labs: Lab Results 04/22/25 04/22/25 04/22/25 Range/Units 15:07 15:13 15:14 WBC 6.9 (4.5-10.0) K/mm3 RBC 4.38 (4.2-5.4) M/mm3 Hgb 12.5 (12.0-15.0) g/dL Hct 39.8 (37.0-47.0) % MCV 90.9 (80-100) fl MCH 28.5 (26-34) pg MCHC 31.4 L (32-36) g/dl RDW 15.3 H (11.5-14.5) % Plt Count 346 (150-375) k/mm3 MPV 9.7 (7.4-10.4) fl Immature Gran % (Auto) 0.4 (0-0.5) % Neut % (Auto) 74.1 H (45.5-73.1) % Lymph % (Auto) 17.9 L (18.3-44.2) % Robeson % (Auto) 5.4 (2.6-8.5) % Eos % (Auto) 1.3 (0-4.4) % Baso % (Auto) 0.9 (0.2-1.2) % Lymph # (Auto) 1.23 (0.9-3.2) K/mm3 Robeson # (Auto) 0.4 (0.1-0.6) K/mm3 Eos # (Auto) 0.1 (0-0.3) K/mm3 Baso # (Auto) 0.1 (0.0-0.1) K/mm3 Abs Immat Gran (auto) 0.03 (0.00-0.031) K/mm3 Absolute Neuts (auto) 5.1 (1.3-6.7) K/mm3 Absolute Nucleated RBC 0.000 (0.0-0.012) K/mm3 Nucleated RBC % 0.0 (0.0-0.2) % Sodium 134 L (137-145) mmol/L Potassium 3.8 (3.4-5.0) mmol/L Chloride 101 (98-107) mmol/L Carbon Dioxide < 5 L (22-30) mmol/L Anion Gap (4-12) mmol/L BUN 18 H (7-17) mg/dL Creatinine 0.74 (0.7-1.0) mg/dL Estim Creat Clear Calc 105 ml/min Estimated GFR > 60 (59 - ) Glucose 450 H (65-110) mg/dL POC Capillary Glucose 462 H (65-105) mg/dl Hemoglobin A1c 12.3 H (<5.7) % Calcium 9.2 (8.4-10.2) mg/dL Phosphorus 3.6 (2.5-4.5) mg/dL Magnesium 1.8 (1.6-2.3) mg/dL Total Bilirubin 0.7 (0.2-1.3) mg/dL AST 50 H (14-36) U/L ALT 48 H (6-35) U/L Alkaline Phosphatase 168 H (38-126) U/L Total Creatine Kinase 121 (30-135) U/L Total Protein 7.4 (6.3-8.2) g/dL Albumin 4.5 (3.5-5.1) g/dL Beta-Hydroxybutyrate/Acetoacetate 5.25 H (0.02-0.27) mmol/L Urine Color (Yellow) Urine Appearance (Clear) Urine pH (5.0-9.0) Ur Specific [place] (1.001-1.035) Urine Protein (Negative) mg/dL Urine Glucose (UA) (Negative) mg/dL Urine Ketones (Negative) mg/dL Ur Blood (Man) (Negative) Urine Nitrate (Negative) Urine Bilirubin (Negative) Urine Urobilinogen (<2.0) mg/dL Leukocyte Esterase Rfl (Negative) APARNA/UL POC Urine HCG, Qual (Negative) 04/22/25 04/22/25 Range/Units 15:23 16:03 WBC (4.5-10.0) K/mm3 RBC (4.2-5.4) M/mm3 Hgb (12.0-15.0) g/dL Hct (37.0-47.0) % MCV (80-100) fl MCH (26-34) pg MCHC (32-36) g/dl RDW (11.5-14.5) % Plt Count (150-375) k/mm3 MPV (7.4-10.4) fl Immature Gran % (Auto) (0-0.5) % Neut % (Auto) (45.5-73.1) % Lymph % (Auto) (18.3-44.2) % Robeson % (Auto) (2.6-8.5) % Eos % (Auto) (0-4.4) % Baso % (Auto) (0.2-1.2) % Lymph # (Auto) (0.9-3.2) K/mm3 Robeson # (Auto) (0.1-0.6) K/mm3 Eos # (Auto) (0-0.3) K/mm3 Baso # (Auto) (0.0-0.1) K/mm3 Abs Immat Gran (auto) (0.00-0.031) K/mm3 Absolute Neuts (auto) (1.3-6.7) K/mm3 Absolute Nucleated RBC (0.0-0.012) K/mm3 Nucleated RBC % (0.0-0.2) % Sodium (137-145) mmol/L Potassium (3.4-5.0) mmol/L Chloride (98-107) mmol/L Carbon Dioxide (22-30) mmol/L Anion Gap (4-12) mmol/L BUN (7-17) mg/dL Creatinine (0.7-1.0) mg/dL Estim Creat Clear Calc ml/min Estimated GFR (59 - ) Glucose (65-110) mg/dL POC Capillary Glucose (65-105) mg/dl Hemoglobin A1c (<5.7) % Calcium (8.4-10.2) mg/dL Phosphorus (2.5-4.5) mg/dL Magnesium (1.6-2.3) mg/dL Total Bilirubin (0.2-1.3) mg/dL AST (14-36) U/L ALT (6-35) U/L Alkaline Phosphatase (38-126) U/L Total Creatine Kinase (30-135) U/L Total Protein (6.3-8.2) g/dL Albumin (3.5-5.1) g/dL Beta-Hydroxybutyrate/Acetoacetate (0.02-0.27) mmol/L Urine Color Yellow (Yellow) Urine Appearance Clear (Clear) Urine pH 5.0 (5.0-9.0) Ur Specific [place] 1.029 (1.001-1.035) Urine Protein Negative (Negative) mg/dL Urine Glucose (UA) 3+ H (Negative) mg/dL Urine Ketones 4+ H (Negative) mg/dL Ur Blood (Man) Negative (Negative) Urine Nitrate Negative (Negative) Urine Bilirubin Negative (Negative) Urine Urobilinogen 0.2 (<2.0) mg/dL Leukocyte Esterase Rfl Negative (Negative) APARNA/UL POC Urine HCG, Qual Negative (Negative) ABG Data ABG results: 04/22/25 15:14 VBG pH 7.255 L VBG pCO2 22.3 L* VBG pO2 87.5 H VBG HCO3 9.7 L O2 Delivery Device Room air O2 Liters/Min Not Reportable FiO2 21 Attestation: I personally reviewed and interpreted this ABG as follows: Interpretation: Anion gap metabolic acidosis consistent with diabetic ketoacidosis. No appropriate compensation from the kidneys. Imaging Data Attestation: I personally reviewed and interpreted this imaging study as follows: My impression: Chest x-ray without any effusions or infiltrates. Critical Care Time Critical Care Time Critical Care Time: Yes Total Critical Care Time: 35 Discharge Plan Discharge Clinical Impression: Diabetic ketoacidosis, Uncontrolled type 1 diabetes mellitus Patient Disposition: Still a Patient Condition: Stable Time of Disposition: 17:05
[2025-04-22] MEDS: ONDANSETRON INJ 4 MG/2 ML VIAL IV PUSH (15:16)
[2025-04-22] MEDS: LACTATED RINGERS 1,000 ML 999 ML IV CONT ×3 (15:20→16:07)
[2025-04-22 15:21] LABS: Basophils Absolute Auto 0.1 K/mm3 (0.0-0.1); Basophils Percent Auto 0.9 % (0.2-1.2); Eosinophils Absolute Auto 0.1 K/mm3 (0-0.3); Eosinophils Percent Auto 1.3 % (0-4.4); Hematocrit 39.8 % (37.0-47.0); Hemoglobin 12.5 g/dL (12.0-15.0); Immature Granulocyte Absolute 0.03 K/mm3 (0.00-0.031); Immature Granulocyte Percent A 0.4 % (0-0.5); Lymphocytes Absolute Auto 1.23 K/mm3 (0.9-3.2); Lymphocytes Percent Auto 17.9 % (18.3-44.2); Mean Corpuscular HGB Conc 31.4 g/dl (32-36); Mean Corpuscular Hemoglobin 28.5 pg (26-34); Mean Corpuscular Volume 90.9 fl (80-100); Mean Platelet Volume 9.7 fl (7.4-10.4); Monocytes Absolute Auto 0.4 K/mm3 (0.1-0.6); Monocytes Percent Auto 5.4 % (2.6-8.5); Neutrophils Absolute Auto 5.1 K/mm3 (1.3-6.7); Neutrophils Percent Auto 74.1 % (45.5-73.1); Platelet Count Result 346 k/mm3 (150-375); Red Blood Count 4.38 M/mm3 (4.2-5.4); Red Cell Distribution Width 15.3 % (11.5-14.5); White Blood Count 6.9 K/mm3 (4.5-10.0)
[2025-04-22 15:25] LABS: Fractional Inspired Oxygen 21 %; HCO3 VBG 9.7 mEq/l (24.0-30.0); PO2 VBG 87.5 mmHg (35.0-45.0); pH VBG 7.255 (7.300-7.400)
[2025-04-22 15:25] LABS: BEDSIDEPREGUCG Negative (Negative)
[2025-04-22 15:26] LABS: Device ROOM AIR; PCO2 VBG 22.3 mmHg (42.0-48.0)
[2025-04-22 15:33] LABS: Alanine Aminotransferase 48 U/L (6-35); Albumin Level 4.5 g/dL (3.5-5.1); Alkaline Phosphatase 168 U/L (38-126); Aspartate Amino Transferase 50 U/L (14-36); Bilirubin,Total 0.7 mg/dL (0.2-1.3); Blood Urea Nitrogen 18 mg/dL (7-17); Calcium 9.2 mg/dL (8.4-10.2); Carbon Dioxide < 5 mmol/L (22-30); Chloride 101 mmol/L (98-107); Estimated CRCL calculation 105 ml/min; Estimated Glomerular Filt Rate > 60; Glucose 450 mg/dL (65-110); Magnesium 1.8 mg/dL (1.6-2.3); Phosphorus 3.6 mg/dL (2.5-4.5); Potassium 3.8 mmol/L (3.4-5.0); Sodium 134 mmol/L (137-145); Total Protein 7.4 g/dL (6.3-8.2)
[2025-04-22 15:36] LABS: Beta-Hydroxybutyrate/Acetoacetate 5.25 mmol/L (0.02-0.27)
--- OUTSIDE RECORDS SUMMARY | 2025-04-22 15:38 | XMS_ITS | Continuity of Care Document ---
Author Organization [facility] Address [address] [place] [address] [address] [place] [address] Phone Care Team Providers Care Deck Officer Name Role Phone Marjorie Kuhn OT Unavailable [...] Complexity Therapeutic Activities Neuromuscular Re-Ed Therapeutic Exercise Manual [...] Activities Neuromuscular Re-Ed Therapeutic Exercise Manual Therapy PT Evaluation Moderate Complexity Neuromuscular Re-Ed Therapeutic Exercise Manual Therapy Advance Directives Directive Yes / No Effective Date File Name No Information Encounters Encounter Description Practice Location Reason(s) For Visit Diagnoses Date Provider Providers Copied on Encounter [facility] [address], [place], [place], [id number], [place] tel:[phone] [place] No Information Hattie Amador. . Referring Provider: Luciano Kutnik M, [address], [place], [address]. tel:[phone] [facility], [address], [place], [place], [id number], [place] tel:[phone] [place] No Information 4 Kuhn Marjorie. . Referring Provider: Luciano Cintron, [address], [place], [address]. tel:[phone] [facility], [address], [place], [id number], [place] tel:[phone] [place] No Information 4 Kuhn Marjorie. . Referring Provider: Luciano Cintron, [address], [place], [address]. tel:[phone] [facility], [address], [place], [id number], [place] tel:[phone] [place] No Information 4 Kuhn Marjorie. . Referring Provider: Luciano Cintron, [address], [place], [address]. tel:[phone] [facility], [address], [place], [place], [id number], [place] tel:[phone] [place] No Information 4 Kuhn Marjorie. . Referring Provider: Luciano Cintron, [address], [place], [address]. tel:[phone] [facility], [place], [place], [id number], [place] tel:[phone] [place] No Information 0 4 Kuhn Marjorie. . Referring Provider: Luciano Cintron, [address], [place], [address]. tel:[phone] [facility], [address] [facility] [address] [facility] [address], [place], [place], [id number], [place] tel:[phone] [place] No Information 4 Hattie Amador. . Referring Provider: Luciano Cintron, [address] [facility] [address], [place], [address]. tel:[phone] [facility] [address] [facility] [address], [place], [place], [id number], [place] tel:[phone] [place] No Information 4 Modglin Calixto. . Referring Provider: Edgardo Cruz, [address] [place] [address] [address], [place], [address]. tel:[phone] [facility] [facility] [address], [place], [place], [address], [place] tel:[phone] [place] No Information 4 Modglin Calixto. . Referring Provider: Edgardo Cruz, [address] [place] [address] [address], [place], [address]. tel:[phone] [facility] [address], [place], [id number], [place] tel:[phone] [place] No Information 4 Muehl Harvey. [address] [facility], [address], [place], [facility], [place]. tel:[phone] Referring Provider: Edgardo Cruz, [address] [facility] [address], [place], [address]. tel:[phone] [facility] [facility] [address], [place], [place], [id number], [place] tel:[phone] [place] No Information 4 Muehl Harvey. [address] [facility], [address], [place], [address], [place]. tel:[phone] Referring Provider: Edgardo Cruz, [address] [facility] [address], [place], [address]. tel:[phone], [id number], tel:[phone] [place] No Information 4 Cezarehl Harvey. [address] [place] [address], [place] [address], . tel: [phone] Referring Provider: Edgardo Cruz, [address] [place] [address] [place] [address], [facility]. tel:[phone], [id number], tel:[phone] [place] No Information 4 Michaell Harvey. [address] [place] [address], [place] [address], . tel: [phone] Referring Provider: Edgardo Cruz, [address] [place] [address], [facility]. tel:[phone], [id number], tel:[phone] [place] No Information 4 Ankushglin Calixto. . Referring Provider: Edgardo Cruz, [address] [place] [address], [facility]. tel:[phone], [id number], tel:[phone] [place] No Information 4 Michaell Harvey. [address] [place] [address], [facility] [address] [address], . tel:[phone] Referring Provider: Edgardo Cruz, [address] [place] [address] [place] [address], [facility]. tel:[phone] Family History Family Member Type Diagnosis Age [...]
--- OUTSIDE RECORDS SUMMARY | 2025-04-22 15:38 | XMS_ITS | Referral Summary ---
Author Organization [facility] ospital Address [address] [place] [address] Care Team Providers Care Brass Instrument Repair Technician Name Role Phone Chad Guo MD Unavailable [phone] Thaddeus Madsen DPT Unavailable [phone] Mary Velasquez Primary Care Provider [phone] Encounters Date Type Department Care Team Description 04/05/2025 Telephone [facility] Endocrinology Metabolism and Lipid [address] [facility] Advanced Medicine 5th [place] [address] [place] [phone] Shana Ley RN Prior Auth (Insulin Lispro 100UNIT/ML solution) 03/23/2025 Telephone [facility] Obstetrics and Gynecology [address] [facility] Outpatient Health 7th Floor [address] [place] [address] Karis Graf RN 03/16/2025 8:35 PM CDT Anesthesia Event [facility] Operating Room 1 [place] [phone] Greyson Rai MD Hall, Jill Marie, NP 03/16/2025 11:00 AM CDT - 03/16/2025 1:35 PM CDT Hospital Encounter [facility] Operating Room 1 [place] [phone] Dee Yanes MD Discharge Disposition: Discharge to home or self care from Last 3 Months Allergies Active Allergy Reactions Criticality Noted Date Comments Adhesive Rash Medium Band-aid;Latex adhesive only Latex Itching Low 05/20/2019 Itching Medications lancets misc test 6-8x per day Active acetone, urine, test strip by in vitro route 015 Active blood-glucose meter,continuous misc Use with [employer] G6 sensors and transmitter to monitor blood [...] 10/21/2022 Assessment & Plan (10/21/2022 12:12 PM SHOP FITTER): Plan tonsillectomy and adenoidectomy. - Discussed risks, [...] 10/21/2022 Assessment & Plan (11/26/2022 3:20 PM SHOP FITTER): Continue increased fluids for one more week Return to regular activity next week Return to regular diet as tolerated Follow up as needed Assessment & Plan (11/20/2022 2:00 PM SHOP FITTER): Continue increased hydration and light activity Miraalax if needed Assessment & Plan (10/21/2022 12:12 PM SHOP FITTER): Plan tonsillectomy and adenoidectomy. - Discussed risks, [...] (04/06/2020 10:15 AM CDT): Currently on hydromorphone CARD BRUSHER, methocarbamol 1000mg q8, ketorolac 30mg qh, acetaminophen 1000mg q6h. Management per surgery Assessment & Plan (04/05/2020 9:54 AM CDT): Currently on hydromorphone CARD BRUSHER, methocarbamol 1000mg q8, ketorolac 30mg qh, acetaminophen 1000mg q6h. Management per surgery Free intraperitoneal air 04/02/2020 Overview (04/02/2020): Added automatically from request for surgery [id number] Assessment & Plan (04/06/2020 10:15 AM CDT): [...] AM CDT): Per psychology evaluation, since the [place] [facility] order, Jenna has endorsed more frequent symptoms of irritability, fatigue, isolation and decreased interest in activities. It is reassuring she continues to not endorse feelings of suicidal intent or ideation and is currently receiving outpatient therapy arranged by her primary community placement worker. Thus far, family is more comfortable with [...] PM CDT): Per psychology evaluation, since the [place] [facility] order, Jenna has endorsed more frequent symptoms of irritability, fatigue, isolation and decreased interest in activities. It is reassuring she continues to not endorse feelings of suicidal intent or ideation and is currently receiving outpatient therapy arranged by her primary community placement worker. Thus far, family is more comfortable with [...] (05/30/2019): Added automatically from request for surgery [id number] Appendicolith 05/30/2019 Overview (05/30/2019): Added automatically from request for surgery [id number] Nocturnal hypoglycemia 05/03/2017 Type 1 diabetes 08/08/2009 [...] on file Legal Sex Female 11:02 AM SHOP FITTER Gender Identity Not on file Sexual Orientation [...] DEV ICE Final Result CHELLE SMITH One [facility] Department of Laboratories [place], [place] [id number] * (ABNORMAL) POC Blood Gas and Chemistries, Venous - (03/16/2025 12:41 PM CDT) pH, Jeff POC 7.41 7.32 - 7.43 pCO2, jeff POC 36(L) 40 - 50 mmHg [facility] pO2, jeff POC 66 [facility] Na, POC 135 135 - 145 mmol/L [facility] K POC 4.8 3.3 - 4.9 mmol/L [facility] Comment: Interpretive Data Not all point of care methods assess for hemolysis. Confirm with instrument and retest K+ if not consistent with clinical signs and symptoms. Current Interpretive Data was last revised on 2024. Cl, POC 106 97 - 110 mmol/L [facility] Ionized Ca, POC 4.88 4.50 - 5.10 mg/dL [facility] Glucose, POC 523(C) 70 - 199 mg/dL [facility] Lactate POC 1.5 0.7 - 2.0 mmol/L [facility] O2 Sat, Jeff POC (Trini) 94 % [facility] Base excess, POC -1.4 mmol/L [facility] HCO3, Jeff POC 23 20 - 30 mmol/L [facility] Hct, POC 38.0 36.3 - 45.3 % [facility] Total Hb, POC 12.6 11.9 - 15.5 g/dL [facility] Blood 03/16/2025 12:4 1 PM CDT 03/16/2025 12:41 PM CDT Dee Yanes MD LAB POCT ORDERABLES - DEV ICE Final Result Performing Organization Address City/[facility]/ZIP Co de Phone Number [facility] One [facility] Department [place] [address] * (ABNORMAL) POCT glucose (03/16/2025 12:38 PM CDT) [facility] Glucose, POC 424(H) 70 - 199 mg/dL Blood 03/16/2025 12:3 8 PM CDT 03/16/2025 12:38 PM CDT Dee Yanes MD LAB POCT ORDERABLES - DEV ICE Final Result [facility] Department [place] [address] * POCT hemoglobin A1c (06/22/2024 1:12 PM CDT) Hemoglobin A1C, POC 12 4.0 - 5.6 % Blood 06/22/2024 1:12 PM CDT Manny Camacho MD POINT OF CARE TEST ORDERABLES Fi nal Result * Thyroid Function [place] (02/23/2024 2:30 PM CDT) Pathologist [facility] TSH 0.79 0.30 - 4.20 mcIUnit/mL Blood 02/23/2024 2:30 PM CDT 02/23/2024 3:27 PM CDT Dee Yanes MD LAB BLOOD ORDERABLES Vianca l Result Performing Organization Address City/State/[facility] Co de Phone Number [facility] Department [place] [address] * N. gonorrhoeae/C. trachomatis Amplification Urine (08/11/2022 2:38 PM CDT) Pathologist [facility] C. trachomatis Not Detected Not Detected CHELLE Comment:Testing performed by : [facility], [address] [place] [address]., [address] N. gonorrhoeae Not Detected Not Detected CHELLE Comment: Interpretive Data Testing performed by the [facility] Laboratory. This assay detects Chlamydia trachomatis and [...] last revised on 2019. Testing performed by: [address] [address] Urine (None) 08/11/2022 2:38 PM CDT 08/11/2022 2:46 PM CDT us Eusebia JAUREGUI LAB MICROBIOLOGY - GENERAL O RDERABLES Final Result Performing Organization Address [facility] Co de Phone Number CHELLE [address] [facility] [place] [address] * eGFR (08/11/2022 12:28 PM CDT) eGFR [...] was last reviewed 2021. Testing performed by: [facility], [address] [place] [address]., [address] Blood 08/11/2022 12:2 8 PM CDT 08/11/2022 12:39 PM CDT us Eusebia JAUREGUI LAB BLOOD ORDERABLES Final R esult Performing Organization Address City/[facility]/ZIP Co de Phone Number CHELLE [address] [facility] [employer] [place], [place] [id number] from Last 3 Months or Most Recently Relevant to Health Maintenance Insurance [facility] HMO/PPO Address: [place] [address] [facility] HMO/PPO Address: [address] [address] [facility] H[facility]/PPO Address: [facility] [id number] [place] [address] Advance Directives For more information, please contact: [phone] * Full Code (Latest Code Status on File) Date Activated Date Inactivated Comments 11/17/2022 1:26 PM 11/17/2022 7:53 PM * Full Code Date Activated Date Inactivated Comments 05/30/2022 11:40 AM 05/31/2022 2:03 PM * Full Code Date Activated Date Inactivated Comments 04/03/2020 12:41 AM 04/06/2020 4:32 PM * Full Code Date Activated Date Inactivated Comments 06/05/2019 11:15 AM 06/06/2019 2:43 PM Care Teams Brass Instrument Repair Technician Relationship Specialty Start Date End Date Mary Velasquez PA [address] [place] [address] PCP - General Physician Lymphedema Therapist 09/14/22 Chad Guo MD [address] [place] [address] [address] [place] [address] Referring Physician Pediatric Surgery 04/05/20 Thaddeus Madsen DPT [address] [facility] [address] [place] [address] Physical Therapist Physical Therapy 06/10/20
--- OUTSIDE RECORDS SUMMARY | 2025-04-22 15:38 | XMS_ITS | Clinical Summary ---
Author Organization [facility] ospital Address [address] [place] [address] Care Team Providers Care Circuit Board Repair Technician Name Role Phone Chad Guo MD Unavailable [phone] Thaddeus Madsen DPT Unavailable [phone] Mary Velasquez Primary Care Provider [phone] Allergies Active Allergy Reactions Criticality Noted Date [...] 10/21/2022 Assessment & Plan (10/21/2022 12:12 PM ORACLE ADF CONSULTANT): Plan tonsillectomy and adenoidectomy. - Discussed risks, [...] 10/21/2022 Assessment & Plan (11/26/2022 3:20 PM ORACLE ADF CONSULTANT): Continue increased fluids for one more week Return to regular activity next week Return to regular diet as tolerated Follow up as needed Assessment & Plan (11/20/2022 2:00 PM ORACLE ADF CONSULTANT): Continue increased hydration and light activity Miraalax if needed Assessment & Plan (10/21/2022 12:12 PM ORACLE ADF CONSULTANT): Plan tonsillectomy and adenoidectomy. - Discussed risks, [...] (04/06/2020 10:15 AM CDT): Currently on hydromorphone MED CARE MANAGER, methocarbamol 1000mg q8, ketorolac 30mg qh, acetaminophen 1000mg q6h. Management per surgery Assessment & Plan (04/05/2020 9:54 AM CDT): Currently on hydromorphone MED CARE MANAGER, methocarbamol 1000mg q8, ketorolac 30mg qh, acetaminophen 1000mg q6h. Management per surgery Free intraperitoneal air 04/02/2020 Overview (04/02/2020): Added automatically from request for surgery [id number] Assessment & Plan (04/06/2020 10:15 AM CDT): [...] AM CDT): Per psychology evaluation, since the [facility] order, Jenna has endorsed more frequent symptoms of irritability, fatigue, isolation and decreased interest in activities. It is reassuring she continues to not endorse feelings of suicidal intent or ideation and is currently receiving outpatient therapy arranged by her primary territory supervisor. Thus far, family is more comfortable with [...] PM CDT): Per psychology evaluation, since the [facility] order, Jenna has endorsed more frequent symptoms of irritability, fatigue, isolation and decreased interest in activities. It is reassuring she continues to not endorse feelings of suicidal intent or ideation and is currently receiving outpatient therapy arranged by her primary territory supervisor. Thus far, family is more comfortable with [...] (05/30/2019): Added automatically from request for surgery [id number] Appendicolith 05/30/2019 Overview (05/30/2019): Added automatically from request for surgery [id number] Nocturnal hypoglycemia 05/03/2017 Type 1 diabetes 08/08/2009 [...] Type Department Care Team Description 04/05/2025 Telephone [facility] Endocrinology Metabolism and Lipid [address] [facility] Advanced Medicine 5th [place] [address] [place] [address] Shana Ley RN Prior Auth (Insulin Lispro 100UNIT/ML solution) 03/23/2025 Telephone [facility] Obstetrics and Gynecology [address] [facility] Outpatient Health 7th Floor [address] [place] [address] Karis Graf RN 03/16/2025 8:35 PM CDT Anesthesia Event [facility] Operating Room 1 [place] [address] Greyson Rai MD Hall, Jill Marie, NP 03/16/2025 11:00 AM CDT - 03/16/2025 1:35 PM CDT Hospital Encounter [facility] Operating Room 1 [place] [address] Dee Yanes MD Discharge Disposition: Discharge to [...] on file Legal Sex Female 11:02 AM ORACLE ADF CONSULTANT Gender Identity Not on file Sexual Orientation [...] DEV ICE Final Result Performing Organization Address City/[facility]/ZIP Co de Phone Number [facility] One [facility] Department [place] [address] * (ABNORMAL) POC Blood Gas and Chemistries, Venous - (03/16/2025 12:41 PM CDT) pH, Jeff POC 7.41 7.32 - 7.43 pCO2, jeff POC 36(L) 40 - 50 mmHg [facility] pO2, jeff POC 66 mmHg [facility] Na, POC 135 135 - 145 mmol/L [facility] K POC 4.8 3.3 - 4.9 mmol/L [facility] Comment: Interpretive Data Not all point of care methods assess for hemolysis. Confirm with instrument and retest K+ if not consistent with clinical signs and symptoms. Current Interpretive Data was last revised on 2024. Cl, POC 106 97 - 110 mmol/L [facility] Ionized Ca, POC 4.88 4.50 - 5.10 mg/dL [facility] Glucose, POC 523(C) 70 - 199 mg/dL [facility] Lactate POC 1.5 0.7 - 2.0 mmol/L [facility] O2 Sat, Jeff POC (Trini) 94 % [facility] Base excess, POC -1.4 mmol/L [facility] HCO3, Jeff POC 23 20 - 30 mmol/L [facility] Hct, POC 38.0 36.3 - 45.3 % [facility] Total Hb, POC 12.6 11.9 - 15.5 g/dL [facility] Blood 03/16/2025 12:4 1 PM CDT 03/16/2025 12:41 PM CDT Dee Yanes MD LAB POCT ORDERABLES - DEV ICE Final Result [facility] Department [place] [address] * (ABNORMAL) POCT glucose (03/16/2025 12:38 PM CDT) [facility] Glucose, POC 424(H) 70 - 199 mg/dL Blood 03/16/2025 12:3 8 PM CDT 03/16/2025 12:38 PM CDT Dee Yanes MD LAB POCT ORDERABLES - DEV ICE Final Result Performing Organization Address [facility] Co de Phone Number [facility] Department [place] [address] * POCT hemoglobin A1c (06/22/2024 1:12 PM CDT) [facility] Hemoglobin A1C, POC 12 4.0 - 5.6 % Blood 06/22/2024 1:12 PM CDT Manny Camacho MD POINT OF CARE TEST ORDERABLES Fi nal Result * Thyroid Function [place] (02/23/2024 2:30 PM CDT) [facility] TSH 0.79 0.30 - 4.20 mcIUnit/mL Blood 02/23/2024 2:30 PM CDT 02/23/2024 3:27 PM CDT Dee Yanes MD LAB BLOOD ORDERABLES Vianca l Result Performing Organization Address City/[facility]/ZIP Co de Phone Number [facility] Department [place] [address] * N. gonorrhoeae/C. trachomatis Amplification Urine (08/11/2022 2:38 PM CDT) [facility] C. trachomatis Not Detected Not Detected CHELLE Comment:Testing performed by : [facility] [address] [address] N. gonorrhoeae Not Detected Not Detected CHELLE CHRIS Comment: Interpretive Data Testing performed by the [facility]. This assay detects Chlamydia trachomatis [...] last revised on 2019. Testing performed by: [facility], [address] [place] [address]., [address] Urine (None) 08/11/2022 2:38 PM CDT 08/11/2022 2:46 PM CDT us Eusebia JAUREGUI LAB MICROBIOLOGY - GENERAL O RDERABLES Final Result CHELLE [address] [facility] Department of Laboratories [place], [place] [id number] * eGFR (08/11/2022 12:28 PM CDT) eGFR [...] was last reviewed 2021. Testing performed by: [facility], [address] [place] [address]., [address] Blood 08/11/2022 12:2 8 PM CDT 08/11/2022 12:39 PM CDT us Eusebia JAUREGUI LAB BLOOD ORDERABLES Final R esult CHELLE [address] [facility] Department [place] [address] from Last 3 Months or Most Recently Relevant to Health Maintenance Insurance [facility] Advance Directives For more information, please contact: [phone] * Full Code (Latest Code Status on File) Date Activated Date Inactivated Comments 11/17/2022 1:26 PM 11/17/2022 7:53 PM * Full Code Date Activated Date Inactivated Comments 05/30/2022 11:40 AM 05/31/2022 2:03 PM * Full Code Date Activated Date Inactivated Comments 04/03/2020 12:41 AM 04/06/2020 4:32 PM * Full Code Date Activated Date Inactivated Comments 06/05/2019 11:15 AM 06/06/2019 2:43 PM Care Teams Circuit Board Repair Technician Relationship Specialty Start Date End Date Mary Velasquez PA [facility] [place] [address] PCP - General Physician Hospitality Housekeeper 09/14/22 Chad Guo MD 1 [facility] [address] [place] [address] Referring Physician Pediatric Surgery 04/05/20 Thaddeus Madsen, DPT [address] [facility] [address] [place] [address] Physical Therapist Physical Therapy 06/10/20
[2025-04-22 16:10] LABS: Add Urine Microscopic? NO; Appearance Urine Clear (Clear); Bilirubin Urine Negative (Negative); Blood Urine Negative (Negative); Color Urine Yellow (Yellow); Glucose Urine UA 3+ mg/dL (Negative); Ketones Urine 4+ mg/dL (Negative); Leukocyte Esterase Ur Negative LEU/UL (Negative); Nitrate Urine Negative (Negative); Protein Urine Negative (Negative); Specific Grav Ur 1.029 (1.001-1.035); Urobilinogen Urine 0.2 mg/dL (<2.0)
[2025-04-22 16:12] LABS: Hemoglobin A1C 12.3 % (<5.7)
[2025-04-22 16:26] LABS: Creatine Kinase 121 U/L (30-135)
[2025-04-22] MEDS: MAGNESIUM SULF 2 GM/WATER 50ML 2 GM/50 ML BAG IVPB (16:29)
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
[2025-04-22 16:34] LABS: Glucose Point of Care 201 mg/dl (65-105)
[2025-04-22 17:26] LABS: MRSA (PCR) NOT DETECTED (NOT DETECTE)
--- NOTE | 2025-04-22 17:26 | ADMGEN ---
This patient, Olinda Zambrano, was admitted to Intensive Care Unit-3 at 1709. Patient/family oriented to hospital policies and general routines including ID bracelet, bed and alarms, visiting hours, pain management, procedures, bathroom and other care routines, personal items, smoking policy, room service/diet, and visiting hours. Information on how to activate the Rapid Response Team has been discussed. Patient/Family are encouraged to report perceived risks to care and to ask questions if they do not understand what they are told or what they should do.
[2025-04-22 17:51] LABS: Anion Gap 14 mmol/L (4-12); Blood Urea Nitrogen 14 mg/dL (7-17); Carbon Dioxide 14 mmol/L (22-30); Chloride 109 mmol/L (98-107); Estimated CRCL calculation 135 ml/min; Estimated Glomerular Filt Rate > 60; Glucose 133 mg/dL (65-110); Sodium 137 mmol/L (137-145)
[2025-04-22] MEDS: KCL 20 MEQ/D5/0.45% SOD CHL 1,000 ML 150 ML IV CONT (18:05)
[2025-04-22] MEDS: INSULIN HUMAN REGULAR (*BKC) 100 UNITS in SODIUM CHLORIDE 0.9% IV 99 ML IV CONT (18:05)
[2025-04-22 18:07] LABS: Glucose Point of Care 117 mg/dl (65-105)
[2025-04-22 18:07] LABS: Glucose Point of Care 149 mg/dl (65-105)
[2025-04-22 18:09] LABS: Magnesium 2.2 mg/dL (1.6-2.3)
[2025-04-22 19:46] LABS: Glucose Point of Care 106 mg/dl (65-105)
[2025-04-22 20:26] LABS: Anion Gap 7 mmol/L (4-12); Blood Urea Nitrogen 12 mg/dL (7-17); Calcium 8.7 mg/dL (8.4-10.2); Carbon Dioxide 21 mmol/L (22-30); Chloride 109 mmol/L (98-107); Estimated CRCL calculation 137 ml/min; Estimated Glomerular Filt Rate > 60; Glucose 109 mg/dL (65-110); Potassium 3.8 mmol/L (3.4-5.0); Sodium 137 mmol/L (137-145)
[2025-04-22 20:31] LABS: Beta-Hydroxybutyrate/Acetoacetate 0.52 mmol/L (0.02-0.27)
[2025-04-22] MEDS: INSULIN GLARGINE (*BKC) 100 UNITS/ML 29 UNITS SUB-Q (20:43)
[2025-04-22] MEDS: PANTOPRAZOLE SOD SESQUIHYDRATE 20 MG TAB PO (20:43)
[2025-04-22 20:44] LABS: Glucose Point of Care 108 mg/dl (65-105)
[2025-04-22] MEDS: hydrOXYzine HCL 25 MG TABLET PO (21:10)
[2025-04-22] MEDS: POTASSIUM CHLORIDE 20 MEQ ER TABLET 40 MEQ PO (21:11)
[2025-04-22 21:36] LABS: Glucose Point of Care 118 mg/dl (65-105)
[2025-04-22 21:56] LABS: Folic Acid 6.3 ng/mL (2.76->20)
[2025-04-22 22:34] LABS: Glucose Point of Care 119 mg/dl (65-105)
[2025-04-22] MEDS: CYANOCOBALAMIN INJ 1,000 MCG/ML VIAL 1000 MCG IM (22:39)
[2025-04-23] VITALS (10 sets, daily range): BP systolic 97–123; BP diastolic 49–86; PULSE 86–102; RESP 12–21; TEMP 36.6–36.9; O2SAT 98–100; BMI 31.6
[2025-04-23 04:12] LABS: Basophils Percent Auto 0.9 % (0.2-1.2); Eosinophils Absolute Auto 0.2 K/mm3 (0-0.3); Eosinophils Percent Auto 4.9 % (0-4.4); Hematocrit 34.1 % (37.0-47.0); Hemoglobin 10.9 g/dL (12.0-15.0); Immature Granulocyte Absolute 0.01 K/mm3 (0.00-0.031); Immature Granulocyte Percent A 0.2 % (0-0.5); Lymphocytes Absolute Auto 1.91 K/mm3 (0.9-3.2); Lymphocytes Percent Auto 42.6 % (18.3-44.2); Mean Corpuscular Hemoglobin 28.9 pg (26-34); Mean Corpuscular Volume 90.5 fl (80-100); Mean Platelet Volume 10.1 fl (7.4-10.4); Monocytes Absolute Auto 0.4 K/mm3 (0.1-0.6); Monocytes Percent Auto 9.6 % (2.6-8.5); Neutrophils Absolute Auto 1.9 K/mm3 (1.3-6.7); Neutrophils Percent Auto 41.8 % (45.5-73.1); Platelet Count Result 298 k/mm3 (150-375); Red Blood Count 3.77 M/mm3 (4.2-5.4); Red Cell Distribution Width 15.8 % (11.5-14.5); White Blood Count 4.5 K/mm3 (4.5-10.0)
[2025-04-23 04:46] LABS: Magnesium 1.9 mg/dL (1.6-2.3)
[2025-04-23 04:52] LABS: Beta-Hydroxybutyrate/Acetoacetate 1.37 mmol/L (0.02-0.27)
--- NOTE | 2025-04-23 05:05 | PCRCNOTE ---
Per RN VBG to be dc'd
[2025-04-23 05:32] LABS: Alanine Aminotransferase 19 U/L (6-35); Alkaline Phosphatase 131 U/L (38-126); Anion Gap 7 mmol/L (4-12); Aspartate Amino Transferase 25 U/L (14-36); Bilirubin,Total 0.4 mg/dL (0.2-1.3); Blood Urea Nitrogen 11 mg/dL (7-17); Calcium 8.5 mg/dL (8.4-10.2); Carbon Dioxide 19 mmol/L (22-30); Chloride 107 mmol/L (98-107); Estimated CRCL calculation 125 ml/min; Estimated Glomerular Filt Rate > 60; Glucose 416 mg/dL (65-110); Potassium 4.5 mmol/L (3.4-5.0); Sodium 133 mmol/L (137-145); Total Protein 5.2 g/dL (6.3-8.2)
[2025-04-23 07:30] LABS: Glucose Point of Care 389 mg/dl (65-105)
[2025-04-23] MEDS: LACTATED RINGERS 500 ML IV CONT (07:32)
[2025-04-23] MEDS: CYANOCOBALAMIN 1,000 MCG TABLET 1000 MCG PO (07:33)
[2025-04-23] MEDS: INSULIN ASPART (*BKC) 100 UNITS/ML SUB-Q ×5 (07:33→17:21)
[2025-04-23] MEDS: INSULIN GLARGINE (*BKC) 100 UNITS/ML 10 UNITS SUB-Q (07:33)
[2025-04-23] MEDS: PANTOPRAZOLE SOD SESQUIHYDRATE 20 MG TAB PO ×2 (07:33→20:54)
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
[2025-04-23] MEDS: TOPIRAMATE 100 MG TABLET PO (10:39)
[2025-04-23] MEDS: FLUoxetine HCL 10 MG CAPSULE 30 MG PO (10:40)
[2025-04-23 11:37] LABS: Glucose Point of Care 293 mg/dl (65-105)
[2025-04-23 17:12] LABS: Glucose Point of Care 351 mg/dl (65-105)
[2025-04-23] MEDS: hydrOXYzine HCL 25 MG TABLET PO (20:53)
[2025-04-23] MEDS: INSULIN GLARGINE (*BKC) 100 UNITS/ML 35 UNITS SUB-Q (20:53)
[2025-04-23 20:58] LABS: Glucose Point of Care 146 mg/dl (65-105)
[2025-04-24] VITALS: BP 118/69; PULSE 83; PULSE 92; RESP 16; TEMP 36.8; O2SAT 100; O2SAT 97
[2025-04-24 04:00] VITALS: PULSE 83; RESP 16; O2SAT 97
[2025-04-24 04:10] LABS: Basophils Percent Auto 0.6 % (0.2-1.2); Eosinophils Absolute Auto 0.3 K/mm3 (0-0.3); Eosinophils Percent Auto 5.9 % (0-4.4); Hematocrit 34.5 % (37.0-47.0); Immature Granulocyte Absolute 0.02 K/mm3 (0.00-0.031); Immature Granulocyte Percent A 0.4 % (0-0.5); Lymphocytes Absolute Auto 2.13 K/mm3 (0.9-3.2); Lymphocytes Percent Auto 44.9 % (18.3-44.2); Mean Corpuscular HGB Conc 31.9 g/dl (32-36); Mean Corpuscular Hemoglobin 28.9 pg (26-34); Mean Corpuscular Volume 90.8 fl (80-100); Mean Platelet Volume 9.9 fl (7.4-10.4); Monocytes Absolute Auto 0.4 K/mm3 (0.1-0.6); Neutrophils Absolute Auto 1.9 K/mm3 (1.3-6.7); Neutrophils Percent Auto 40.2 % (45.5-73.1); Platelet Count Result 305 k/mm3 (150-375); Red Cell Distribution Width 15.9 % (11.5-14.5); White Blood Count 4.7 K/mm3 (4.5-10.0)
[2025-04-24 04:40] LABS: Alanine Aminotransferase 22 U/L (6-35); Albumin Level 3.5 g/dL (3.5-5.1); Alkaline Phosphatase 123 U/L (38-126); Anion Gap 6 mmol/L (4-12); Aspartate Amino Transferase 27 U/L (14-36); Bilirubin,Total 0.3 mg/dL (0.2-1.3); Blood Urea Nitrogen 14 mg/dL (7-17); Calcium 8.7 mg/dL (8.4-10.2); Carbon Dioxide 21 mmol/L (22-30); Chloride 107 mmol/L (98-107); Estimated CRCL calculation 145 ml/min; Estimated Glomerular Filt Rate > 60; Glucose 174 mg/dL (65-110); Magnesium 1.6 mg/dL (1.6-2.3); Phosphorus 4.6 mg/dL (2.5-4.5); Potassium 3.3 mmol/L (3.4-5.0); Sodium 134 mmol/L (137-145); Total Protein 6.1 g/dL (6.3-8.2)
[2025-04-24 07:37] LABS: Glucose Point of Care 95 mg/dl (65-105)
[2025-04-24 07:39] VITALS: BP 137/84; PULSE 92; RESP 19; TEMP 36.9; O2SAT 100
[2025-04-24 08:00] VITALS: PULSE 92; RESP 19; O2SAT 100
[2025-04-24] MEDS: TOPIRAMATE 100 MG TABLET PO (09:06)
[2025-04-24] MEDS: FLUoxetine HCL 10 MG CAPSULE 30 MG PO (09:07)
[2025-04-24] MEDS: CYANOCOBALAMIN 1,000 MCG TABLET 1000 MCG PO (09:07)
[2025-04-24] MEDS: PANTOPRAZOLE SOD SESQUIHYDRATE 20 MG TAB PO (09:07)
[2025-04-24] MEDS: INSULIN ASPART (*BKC) 100 UNITS/ML SUB-Q ×2 (09:07→12:03)
[2025-04-24 11:37] LABS: Glucose Point of Care 111 mg/dl (65-105)
--- NOTE | 2025-04-24 15:40 | PM.DS ---
DS: Admitting Diagnosis Discharge Date 04/24/2025 Admitting Diagnosis DKA DS: Discharge Diagnosis Discharge Diagnosis (1) Diabetic ketoacidosis: Code(s): E11.10 - Type 2 diabetes mellitus with ketoacidosis without coma Status: Acute (2) Uncontrolled type 1 diabetes mellitus: Status: Acute (3) Endometriosis: Code(s): N80.9 - Endometriosis, unspecified Status: Acute DS: Summary Hospital Course Hospital Course: # Diabetic ketoacidosis: 04/22: Patient presented the ED with hyperglycemia, nausea, vomiting, was found to have a blood sugars in the 460s, CO2 <5, elevated anion gap and beta hydroxybutyrate, UA was positive for glucose and ketones, patient received 3 L IV fluid bolus, started on insulin infusion along with potassium per DKA protocol -patient was transition to long-acting insulin and sliding scale insulin overnight -this morning blood sugars have been elevated but the patient states that almost every morning her blood sugars are elevated, -she supposed to see a new director of video analytics next month public health educator consulted -continue diabetic diet Titrate up Lantus to 35 units at bedtime and SSI Humalog as previously prescribed # type 1 diabetes: Uncontrolled diabetes -hemoglobin A1c 12.3 -patient states that she wishes to be on insulin pump but could not afford it so she was put on Lantus 29 units by her current director of video analytics. Prior to insulin pump she is to be on Lantus between 40-50 units daily # Endometriosis: Follows OBGYN at [facility] -she also has history of PCOS DVT prophylaxis: SCDs Stress ulcer prophylaxis: Not indicated Nutrition: Diabetic diet Code Status: Full code Time Spent with Patient Time attestation: Total time spent providing and/or coordinating discharge services: 35 minutes Exam Narrative: General: Pleasant female in no acute distress HEENT:? Pupils equal and reactive, sclerae is clear: Moist oral mucosa Neck:? Supple Respiratory:? Clear to auscultation bilaterally, no wheezing, adequate air entry Cardiac:? S1-S2 normal, regular rate and rhythm Abdomen:? Soft, nontender, nondistended, normoactive bowel sounds Extremities:? No edema, palpable pedal pulses Neuro:? Patient is awake, alert, oriented x3 Skin:? No lesions noted, warm and dry Psych:? Normal mentation and affect DS: Data Data Completed and Pending Labs on day of discharge: Labs from last 24 hours 04/24/25 04/24/25 04/24/25 11:27 07:34 03:54 WBC 4.7 RBC 3.80 L Hgb 11.0 L Hct 34.5 L MCV 90.8 MCH 28.9 MCHC 31.9 L RDW 15.9 H Plt Count 305 MPV 9.9 Immature Gran % (Auto) 0.4 Neut % (Auto) 40.2 L Lymph % (Auto) 44.9 H Whitley % (Auto) 8.0 Eos % (Auto) 5.9 H Baso % (Auto) 0.6 Lymph # (Auto) 2.13 Whitley # (Auto) 0.4 Eos # (Auto) 0.3 Baso # (Auto) 0.0 Abs Immat Gran (auto) 0.02 Absolute Neuts (auto) 1.9 Absolute Nucleated RBC 0.000 Nucleated RBC % 0.0 Sodium 134 L Potassium 3.3 L Chloride 107 Carbon Dioxide 21 L Anion Gap 6 BUN 14 Creatinine 0.52 L Estim Creat Clear Calc 145 Estimated GFR > 60 Glucose 174 H POC Capillary Glucose 111 H 95 Calcium 8.7 Phosphorus 4.6 H Magnesium 1.6 Total Bilirubin 0.3 AST 27 ALT 22 Alkaline Phosphatase 123 Total Protein 6.1 L Albumin 3.5 04/23/25 04/23/25 20:52 17:10 WBC RBC Hgb Hct MCV MCH MCHC RDW Plt Count MPV Immature Gran % (Auto) Neut % (Auto) Lymph % (Auto) Whitley % (Auto) Eos % (Auto) Baso % (Auto) Lymph # (Auto) Whitley # (Auto) Eos # (Auto) Baso # (Auto) Abs Immat Gran (auto) Absolute Neuts (auto) Absolute Nucleated RBC Nucleated RBC % Sodium Potassium Chloride Carbon Dioxide Anion Gap BUN Creatinine Estim Creat Clear Calc Estimated GFR Glucose POC Capillary Glucose 146 H 351 H Calcium Phosphorus Magnesium Total Bilirubin AST ALT Alkaline Phosphatase Total Protein Albumin Imaging Radiologist's impression: ITS Impressions Chest X-Ray 04/22/25 16:05 IMPRESSION: No focal infiltrate or effusion. Discharge Plan Discharge Attending physician on discharge: Huber Angeles Consulting providers: Marivel Victor Discharging Clinician: Huber Angeles Anticipated Discharge Date/Time: 04/24/25 15:42 Patient Disposition: Home Activity: as tolerated Diet: diabetic Patient Instructions: Antibiotic Form Patient Language: Italian Stand Alone Forms: General Discharge Information Follow-up/Referrals: Hernán,SHANIA Hernandez [Primary Care Provider] - 1 Week Discharge Medications: New cyanocobalamin (vitamin B-12) [Vitamin B-12] 1,000 mcg Tablet 1,000 mcg PO QAM Qty: 30 0RF Continued norethindrone (contraceptive) 0.35 mg tablet 0.35 mg PO HS Humalog U-100 Insulin 100 unit/mL cartridge 100 sliding scale dose subcut DAILY topiramate 100 mg tablet 100 mg PO DAILY fluoxetine 20 mg capsule 30 mg PO DAILY hydroxyzine HCl 25 mg tablet 25 mg PO HS pantoprazole 20 mg tablet,delayed release (DR/EC) 20 mg PO BID Changed insulin glargine [Lantus Solostar U-100 Insulin] 100 unit/mL (3 mL) insulin pen 35 unit SUBCUT QPM Qty: 30 0RF Date of admission: 04/22/25 16:04 Primary Care Provider: HernánMary Admitting Provider: Huber Angeles Attending physician on admission: Huber Angeles Condition: Stable
[2025-04-24] MEDS: POTASSIUM CHLORIDE 20 MEQ ER TABLET 40 MEQ PO (16:24)
--- NOTE | 2025-05-03 14:59 | PCCDE ---
05/03 DM courtesy call completed. Olinda reports to feeling better, home glucose currently <200. Denies questions, has Endo appt in couple of weeks.
== END 2025-04-24 16:55 | disposition home or self-care (01) | DRG 639 ==
LOC: ANHED 15:36 → ANHICU 17:01
PROVIDERS: Internal Medicine; Nurse Practitioner; Admitting Provider Internal Medicine; Emergency Provider Student in an Organized Health Care Education/Training Program; PCP Physician Assistant; Visit Provider Internal Medicine
DX: E10.10 Type 1 diabetes mellitus with ketoacidosis without coma (principal); E28.2 Polycystic ovarian syndrome; N80.9 Endometriosis, unspecified; Z90.49 Acquired absence of other specified parts of digestive tract; Z79.4 Long term (current) use of insulin
CPT/HCPCS: 36415; 71045; 80048; 80053; 81003; 81025; 82010; 82550; 82607; 82746; 82803; 82948; 83036; 83735; 84100; 85025; 87641; 96361; 96374; 96376; 99285; A9270; J1815; J2405; J3420; J3475; J3480; J7120

== ENCOUNTER 2025-05-24 16:21 | Emergency (ER) | payer OTHER, SELFPAY ==
[2025-05-24 16:26] VITALS: BP 123/75; PULSE 107; RESP 20; TEMP 36.7; O2SAT 100
--- NOTE | 2025-05-24 16:28 | ED_ITS ---
HPI - URI/Sore Throat General Chief Complaint: Upper Respiratory Infection Stated Complaint: Chest hurts, hurts to breath, cough, sinuses are b Time Seen by Provider: 05/24/25 16:25 Source: patient Mode of arrival: ambulatory Limitations: no limitations History of Present Illness HPI Narrative: Patient is a 20-year-old female that presents with 1 week of cough, congestion, fatigue. Patient states it worsened yesterday after being out in the rain 2 days ago. Patient has tried cold and flu medication with no relief. Denies any fever, chills, nausea, vomiting, diarrhea. Patient has history of uncontrolled type 1 diabetes symptoms in the hospital 1 month ago. Related Data Home Medications ?Medication ?Instructions ?Recorded ?Confirmed ?Last Taken ?Type insulin lispro 100 unit/mL 100 sliding scale dose subcut DAILY 07/19/22 04/22/25 04/22/25 History subcutaneous cartridge (Humalog U-100 Insulin) norethindrone (contraceptive) 0.35 0.35 mg PO HS 02/19/25 04/22/25 04/19/25 History mg tablet fluoxetine 20 mg capsule 30 mg PO DAILY 04/22/25 04/22/25 04/22/25 History hydroxyzine HCl 25 mg tablet 25 mg PO HS 04/22/25 04/22/25 04/21/25 History pantoprazole 20 mg tablet,delayed 20 mg PO BID 04/22/25 04/22/25 04/21/25 History release topiramate 100 mg tablet 100 mg PO DAILY 04/22/25 04/22/25 04/22/25 History Allergies Allergy/AdvReac Type Severity Reaction Status Date / Time adhesive tape Allergy Rash Verified 05/24/25 16:29 Review of Systems Review of Systems: All systems reviewed & are unremarkable except as noted in HPI and below Constitutional: Constitutional: Denies chills, Reports fatigue, Denies fever(s), Denies headache(s), Denies malaise and Denies weakness Eyes: Eyes: Denies blurry vision, Denies itchy eyes and Denies loss of vision ENT: Denies otalgia, Denies headache(s), Reports nasal congestion, Denies sinus pain and Denies sore throat Cardiovascular: Cardiovascular: Denies chest pain, Denies irregular heart rhythm and Denies dyspnea Respiratory: Respiratory: Reports chest congestion, Reports cough and Denies dyspnea Gastrointestinal: Gastrointestinal: Denies abdominal pain, Denies diarrhea, Denies nausea and Denies vomiting Musculoskeletal: Musculoskeletal: Denies back pain, Denies myalgias and Denies arthralgias Integumentary/Breasts: Skin/Breast: Denies pruritus and Denies rash Neurologic: Denies headache(s), Denies loss of vision and Denies weakness Psychiatric: Psychiatric: Reports no additional psychiatric complaints Endocrine: Endocrine: Denies fatigue Allergic/Immunologic: Allergic/Immunologic: Denies itchy eyes PMFSH Past Medical History Medical History Endometriosis History of PCOS Diabetes type I Surgical History Surgical History History of appendectomy History of exploratory laparotomy Social History Social History Smoking status: Never smoker Alcohol intake: current Drinks per week: 1 Substance use type: marijuana Other substance usage details: vapes/joint before bed Last use: 04/21/2025 Do You Feel Safe in your Home?: Yes Lack of Transportation: No Lack of Food: Never True Current Housing: I Have Housing Concerned About Future Housing: No Difficulty Paying Gas/Electric Bills: No Difficulty Paying for Meds: No Currently Unemployed: No Education: High School Diploma/GED Difficulty w/ Childcare or Family Care: No Living arrangements: with family Gender identity (if verbalized by the patient): Female Spiritual care concerns: No Comments At time of signature, agree with nursing past medical, surgical, social and family history. There is no relevant family history pertinent to the presenting complaint. Exam Const: General: cooperative, healthy appearing, comfortable, no acute distress and well nourished Nutritional Appearance: well nourished Orientation/consciousness: patient oriented x3 Limitations: no limitations HENMT: Head: normal to inspection, normocephalic and atraumatic Ears: hearing grossly normal bilaterally, external ears normal, TM's normal bilaterally, EAC's normal and no periauricular adenopathy Face/Nose/Sinus: N ormal external nose present, Abnormal mucous membranes and turbinates present erythematous bilateral and diffuse, normal facial exam, sinuses nontender and face symmetric Face and sinus: normal facial exam, sinuses nontender and face symmetric Mouth: Yes Normal oral and palatal mucosa present, Yes lip normal, Yes tongue normal, Yes Normal salivary glands and ducts present, Yes oropharynx normal and Yes moist mucous membranes Teeth and gingiva: dentition normal Throat: posterior oropharynx normal, tonsils normal and uvula midline Eyes: General: appearance normal, both eyes and all related structures Alignment and Position: alignment normal and position normal Periorbital: periorbital findings normal Eyelids: eyelids normal Pupils: Equal, round and reactive pupils present Neck: Neck: normal visual inspection, full ROM, no lymphadenopathy and supple Chest: Chest palpation & inspection: normal inspection of the chest and normal palpation of entire chest wall Resp: Effort & Inspection: normal respiratory effort and able to speak in complete sentences Auscultation: no crackles, no rales, rhonchi throughout and no wheezes Cardio: Rate: tachycardic Rhythm: regular rhythm Heart sounds: S1 normal heart sound present and S2 normal heart sound present GI: Inspection: normal to inspection Skin: General skin exam: normal color and no rashes or lesions noted Neuro: General: patient oriented x3 and moves all extremities Cranial nerves: Yes Equal, round and reactive pupils present Speech: normal speech Gait exam (Neuro): Normal gait present Extrem: General: normal to inspection, full ROM and no edema Psych: Appearance: grossly normal and well kempt Mental Status: mental status grossly normal Speech and movement: Normal speech and movement present Affect: normal affect Attitude: cooperative Thought process: Normal thought process present Course Course Emergency Course: Discharge instructions reviewed with patient, as well as provided in writing per nursing staff. The instructions also include specific and strict return/GO TO THE ER as well as f/u information. All questions have been answered, and the patient deny any further questions with discharge and discharge plan. Portions of this record may have been created with voice recognition software Level of Care: Express Care Visit Vital Signs Vital signs: Vital Signs Temperature 36.7 C 05/24/25 16:26 Pulse Rate 107 H 05/24/25 16:26 Respiratory Rate 20 05/24/25 16:26 Blood Pressure 123/75 05/24/25 16:26 Pulse Oximetry 100 05/24/25 16:26 Oxygen Delivery Room Air 05/24/25 16:26 Temperature 36.7 C 05/24/25 16:26 Pulse Rate 107 H 05/24/25 16:26 Respiratory Rate 20 05/24/25 16:26 Blood Pressure 123/75 05/24/25 16:26 Pulse Oximetry 100 05/24/25 16:26 Oxygen Delivery Room Air 05/24/25 16:26 Reviewed MDM - URI/Sore Throat MDM Narrative Medical decision making narrative: Based on exam, length of illness and medical history will treat with an tibiotics, Tessalon Perles and albuterol inhaler Pt well hydrated appearing, in no respiratory distress, hemodynamically stable. Recommend supportive care. The patient is stable at time of discharge the clinical impression was discussed and the patient was given the opportunity to ask questions, which were addressed as completely as possible given the information available at present. Anticipatory guidance and return to care precautions were discussed and the importance of primary care follow-up was stressed and encouraged. The patient voiced understanding of the plan, indications to return, and the need for follow-up. Exam findings show no acute concerns or changes Patient is appropriate for outpatient treatment and follow-up. Differential diagnosis considered: Arana virus, strep pharyngitis, allergic rhinitis, upper respiratory tract infection, sinusitis, rhinosinusitis, nasopharyngitis. viral pharyngitis, otitis media, otitis externa, otitis effusion, foreign body, cerumen impaction, viral syndrome, and influenza.? Medical Records Attestation: I reviewed the patient's medical records. Lab Data Attestation: I reviewed the patient's lab results. Labs: Lab Results 05/24/25 Range/Units 16:28 POC Influenza A Ag Negative (Negative) POC Influenza B Ag Negative (Negative) POC SARS CoV-2 Ag Negative (Negative) Discharge Plan Discharge Clinical Impression: Upper respiratory infection with cough and congestion, Uncontrolled type 1 diabetes mellitus Patient Disposition: Home Condition: Stable Instructions: Upper Respiratory Infection (ED) Additional Instructions: Take antibiotic as prescribed. Use Tessalon Perles as needed for cough. Use inhaler with spacer as needed. Other symptomatic treatments include: -Alternate Tylenol and Motrin per package directions for fever or pain: Tylenol 650-1000mg by mouth every 4-6 hours. Do not exceed 4000mg in 24 hours. Advil (Ibuprofen) 600 mg by mouth every 6 hours. Do not exceed 2400mg in 24 hours. 8 AM: Tylenol 11 AM: Ibuprofen 2 PM: Tylenol 5 PM: Ibuprofen 8 PM: Tylenol 11 PM: Ibuprofen 2 AM: Tylenol 5 AM: Ibuprofen -Antihistamine medication such as Benadryl at night and Zyrtec/Claritin/Nallely during the day can help improve symptoms. -Use Flonase twice a day for 5 days then daily to help reduce the inflammation and dry up your sinuses. -You can also use Sudafed behind the pharmacy counter. Be sure to drink plenty of water with these medications at least 8 ounces with every dose and it is important to drink 8 to 10 glasses of water per day. Water is a natural decongestant -Eat and drink things that are easy to swallow, like tea or soup, or popsicles. -Oral rinses such as: Salt water gargles and/or may use topical anesthetic (eg. Chloraseptic spray) or lozenges to relieve dryness or throat pain). -Frequent hand washing or hand gas load dispatcher is one of the best ways to prevent spread of infection. -Using a vaporizer or humidifier at night will also help thin secretions and help with coughing up phlegm. Call your Primary Care Doctor and make a follow-up appointment in 3 days. If your cough worsens, you develop a fever greater than 103, you develop shaking chills, a fast heartbeat, trouble breathing and/or feel you are are breathing much faster than usual, call your Primary Care Doctor or go to the ER. Patient Language: Hungarian Prescriptions: New (DME) Aerochamber MV Spacer See Rx Instructions .Route Qty: 1 0RF Rx Instructions: As directed doxycycline monohydrate 100 mg tablet 100 mg PO BID 5 Days Qty: 10 0RF benzonatate 100 mg capsule 100 mg PO BID PRN (Reason: cough) Qty: 14 0RF albuterol sulfate 90 mcg/actuation HFA aerosol inhaler 2 puff inhalation QID PRN (Reason: shortness of breath or wheezing) Qty: 6.7 0RF No Action norethindrone (contraceptive) 0.35 mg tablet 0.35 mg PO HS Humalog U-100 Insulin 100 unit/mL cartridge 100 sliding scale dose subcut DAILY topiramate 100 mg tablet 100 mg PO DAILY fluoxetine 20 mg capsule 30 mg PO DAILY hydroxyzine HCl 25 mg tablet 25 mg PO HS pantoprazole 20 mg tablet,delayed release (DR/EC) 20 mg PO BID cyanocobalamin (vitamin B-12) [Vitamin B-12] 1,000 mcg Tablet 1,000 mcg PO QAM Qty: 30 0RF insulin glargine [Lantus Solostar U-100 Insulin] 100 unit/mL (3 mL) insulin pen 35 unit SUBCUT QPM Qty: 30 0RF Follow-up/Referrals: Ron,SHANIA Hernandez [Primary Care Provider] - 3 Days Stand Alone Forms: Work/School Release IP Time of Disposition: 16:58
[2025-05-24 16:49] LABS: EDCOVIDSCREEN Negative (Negative); EDINFLUASCREEN Negative (Negative); EDINFLUBSCREEN Negative (Negative)
== END 2025-05-24 17:03 | disposition home or self-care (01) ==
PROVIDERS: Emergency Provider Nurse Practitioner Family; PCP Physician Assistant
DX: J06.9 Acute upper respiratory infection, unspecified (principal); E10.9 Type 1 diabetes mellitus without complications; Z20.822 Contact with and (suspected) exposure to COVID-19
CPT/HCPCS: 87426; 87804; 99213; G0463

== ENCOUNTER 2025-07-04 08:53 | Emergency (ER) | payer OTHER, SELFPAY ==
--- NOTE | 2025-07-04 08:54 | ED_ITS ---
HPI - Abdominal Pain General Chief Complaint: Upper Respiratory Infection Stated Complaint: sinus congestion/abdomen pain/high blood sugar Time Seen by Provider: 07/04/25 08:54 Source: patient Mode of arrival: ambulatory Limitations: no limitations History of Present Illness HPI narrative: Olinda is a 20 year old female patient presenting to the clinic today with complaints of high blood sugar, abdominal discomfort, dizziness(unsteadiness), headache, sore throat, diarrhea, nausea, chills, and sinus congestion x1 week. She reports blood sugar is 260 currently. Denies any vomiting, difficulty breathing, chest pain, or shortness of breath. Abdomen discomfort is a 2/10- dull ache. Patient is type 1 diabetic. Takes Lantus and regular insulin. States highest blood sugar has been 260 over the past week. Has experience DKA in the past and she does not feel as though she is in DKA at this time. Denies any urinary symptoms. Currently on her menses. Works at a local [employer] shop. Related Data Home Medications ?Medication ?Instructions ?Recorded ?Confirmed ?Last Taken ?Type insulin lispro 100 unit/mL 100 sliding scale dose subc ut DAILY 07/19/22 04/22/25 04/22/25 History subcutaneous cartridge (Humalog U-100 Insulin) norethindrone (contraceptive) 0.35 0.35 mg PO HS 02/1904/22/25 04/19/25 History mg tablet fluoxetine 20 mg capsule 30 mg PO DAILY 04/22/2504/0804/22/25 History hydroxyzine HCl 25 mg tablet 25 mg PO HS 04/22/2504/0804/21/25 History pantoprazole 20 mg tablet,delayed 20 mg PO BID 04/22/25 04/21/25 History release topiramate 100 mg tablet 100 mg PO DAILY 04/22/2504/22/25 History Allergies Allergy/AdvReac Type Severity Reaction Status Date / Time adhesive tape Allergy Rash Verified 07/04/25 09:01 Review of Systems Review of Systems: Pertinent positives per HPI. Patient denies any fever, chills, rash, visual changes, dizziness, shortness of breath, chest pain, palpitations, vomiting, constipation, or any urinary issues. [facility] Past Medical History Medical History Endometriosis History of PCOS Diabetes type I Surgical History Surgical History History of appendectomy History of exploratory laparotomy Social History Social History Smoking status: Never smoker Alcohol intake: current Drinks per week: 1 Substance use type: marijuana Other substance usage details: vapes/joint before bed Last use: 04/21/2025 Do You Feel Safe in your Home?: Yes Lack of Transportation: No Lack of Food: Never True Current Housing: I Have Housing Concerned About Future Housing: No Difficulty Paying Gas/Electric Bills: No Difficulty Paying for Meds: No Currently Unemployed: No Education: High School Diploma/GED Difficulty w/ Childcare or Family Care: No Living arrangements: with family Gender identity (if verbalized by the patient): Female Spiritual care concerns: No Comments At the time of my signature, I reviewed and agree with the nursing past medical, surgical, social, and family history. There is no relevant family history pertinent to the patient complaint. Exam Narrative: General: Well-developed, obese, in no apparent distress Head: Normocephalic, atraumatic Eyes: Pupils equally round and reactive to light bilaterally, EOM intact, sclera and conjunctive clear, no discharge, lids normal Ears: TMs intact and congested, ear canals clear, no drainage, grossly hearing normal. Nose: Nares patent, clear nasal drainage, mild inflammation, no sinus tenderness. Mouth: Oropharynx red without lesions or masses, good dentition, MMM. Postnasal drip Neck: Supple, trachea midline, no enlargement of anterior or posterior cervical nodes, no thyroid masses or goiter palpable. Cardio: Regular rate and rhythm, s1 and s2 normal, no murmur appreciated. Resp: Clear to auscultation bilaterally anteriorly and posteriorly, no rhonchi, rales, wheezing or rubs Abdomen: Soft, pliable, bowel sounds present in all quadrants, generalized tender to palpation, no organomegly, no CVAT tenderness. Course Course Emergency Course: Portions of this record may have been created with voice recognition software. Level of Care: Express Care Visit Vital Signs Vital signs: Vital Signs Temperature 36.5 C 07/04/25 09:01 Pulse Rate 100 07/04/25 09:01 Respiratory Rate 18 07/04/25 09:01 Blood Pressure 113/66 07/04/25 09:01 Pulse Oximetry 100 07/04/25 09:01 Oxygen Delivery Room Air 07/04/25 09:01 Temperature 36.5 C 07/04/25 09:01 Pulse Rate 100 07/04/25 09:01 Respiratory Rate 18 07/04/25 09:01 Blood Pressure 113/66 07/04/25 09:01 Pulse Oximetry 100 07/04/25 09:01 Oxygen Delivery Room Air 07/04/25 09:01 Vital signs reviewed MDM - Abdominal Pain MDM Narrative Medical decision making narrative: At the time of visit patient is resting comfortably on the exam table. Patient appears to be nontoxic. Vital signs reviewed and are stable. Blood sugar is 260 in the clinic per patient's Dexcom. Complaints of high blood sugar, abdominal discomfort, dizziness(unsteadiness), headache, sore throat, diarrhea, nausea, chills, and sinus congestion x1 week. Denies any vomiting, difficulty breathing, chest pain, or shortness of breath. Abdomen discomfort is a 2/10- dull ache. Patient is type 1 diabetic. Takes Lantus and regular insulin. States highest blood sugar has been 260 over the past week. Has experience DKA in the past and she does not feel as though she is in DKA at this time. Denies any vomiting, difficulty breathing, chest pain, or shortness of breath, or urinary symptoms. Currently on her menses-no concern for . Works at a local [employer] shop. On exam patient has clear nasal congestion with mild swelling of the turbinates, bilateral ear congestion, postnasal drip, mild generalized abdominal discomfort-rates 2/10, positive for nausea without vomiting. No CVAT tenderness. COVID, influenza, strep, UA ordered. Labs: COVID, influenza, and strep test were all negative. We will send strep for culture. Urine dip shows 1+ glucose, 1+ ketone, and 2+ blood. Patient currently on her menses. Plan: I suspect patient has URI/postnasal drip/viral syndrome. Prescription for Zofran was sent to the pharmacy for nausea. Express to the patient if her blood sugars are not under control and she develops DKA symptoms(worsening of abdominal pain, nausea, vomiting, acetone breath, increase respirations, chest pain, shortness of breath, lethargy, or worsening of her current symptoms) she needs to go to the emergency room and she voiced understanding. Supportive measures were discussed with the patient and they voiced understanding discharge instructions and agrees to treatment plan. Return precautions reviewed Differential Diagnosis Differential diagnosis: Likely abdominal pain, acute appendicitis, calculus of kidney, constipation, diverticulitis, endometriosis, gastroenteritis, pancreatitis, small bowel obstruction and other (DKA, sinusitis, URI, viral syndrome, gastroparesis) Lab Data Labs: Lab Results 07/04/25 07/04/25 Range/Units 09:42 09:43 POC Urine Color Yellow POC Urine Clarity Clear POC Urine pH 5.5 POC Ur Specif [place] 1.025 POC Urine Protein Negative (Negative) POC Ur Glucose (UA) 1+ (Negative) POC Urine Ketones 1+ (Negative) POC Urine Blood 2+ (Negative) POC Urine Nitrite Negative (Negative) POC Urine Bilirubin Negative (Negative) POC Urine Urobilinogen 0.2 POC U Leukocyte Esteras Negative (Negative) POC Influenza A Ag Negative (Negative) POC Influenza B Ag Negative (Negative) POC SARS CoV-2 Ag Negative (Negative) POC Grp A Strep Screen Negative (Negative) Discharge Plan Discharge Clinical Impression: PND (post-nasal drip), Acute viral syndrome URI (upper respiratory infection) Qualifiers: URI type: unspecified viral URI Qualified Code(s): J06.9 - Acute upper respiratory infection, unspecified Patient Disposition: Home Condition: Stable Instructions: Antibiotic Form, Viral Syndrome (ED), Cold Symptoms (ED), Postnasal Drip (DC) Additional Instructions: Take prescription medications only as prescribed-ondansetron for nausea Keep a tight control on your blood sugar Increase fluids and stay well hydrated May take [id number] Sudafed for nasal congestion May take Tylenol or motrin as directed on bottle for pain/fever May use Flonase 1 spray in each nare daily May take OTC antihistamines such as Zyrtec or Claritin daily as directed on bottle May apply Vicks vapor rub to chest to open sinuses May use sterile saline sinus rinses for congestion Cepacol spray, cough drops, throat lozenges, warm tea with honey/lemon, gargle salt water to soothe throat BRAT diet for diarrhea May take Imodium as per bottle directions as needed for diarrhea as long as there is no blood in your stool Clear liquids x 24 hours then advance as tolerated for nausea/vomiting Go to the ED if you develop a worsening in your condition- high fever not controlled by Tylenol or Motrin, dehydration, weakness, lethargy, shortness of breath, or chest pain. Follow up with your PCP in 3-5 days if symptoms persist. Patient Language: Polish Prescriptions: New ondansetron 8 mg tablet,disintegrating 8 mg PO Q8H PRN (Reason: nausea and vomiting) 3 Days Qty: 10 0RF No Action norethindrone (contraceptive) 0.35 mg tablet 0.35 mg PO HS Humalog U-100 Insulin 100 unit/mL cartridge 100 sliding scale dose subcut DAILY topiramate 100 mg tablet 100 mg PO DAILY fluoxetine 20 mg capsule 30 mg PO DAILY hydroxyzine HCl 25 mg tablet 25 mg PO HS pantoprazole 20 mg tablet,delayed release (DR/EC) 20 mg PO BID cyanocobalamin (vitamin B-12) [Vitamin B-12] 1,000 mcg Tablet 1,000 mcg PO QAM Qty: 30 0RF insulin glargine [Lantus Solostar U-100 Insulin] 100 unit/mL (3 mL) insulin pen 35 unit SUBCUT QPM Qty: 30 0RF Follow-up/Referrals: Ron,SHANIA Hernandez [Primary Care Provider, Unknown] Stand Alone Forms: Work/School Release IP Time of Disposition: 09:30 Quality NIHSS Nursing Documentation ED NIHSS nursing documentation: reviewed/agree
[2025-07-04 09:01] VITALS: BP 113/66; PULSE 100; RESP 18; TEMP 36.5; O2SAT 100
[2025-07-04 09:57] LABS: EDCOVIDSCREEN Negative (Negative)
[2025-07-04 09:57] LABS: EDINFLUASCREEN Negative (Negative); EDINFLUBSCREEN Negative (Negative); EDSTREPNEGPOS1 Negative (Negative); EDUAAPPEAR Clear; EDUABILI Negative (Negative); EDUABLOOD 2+ (Negative); EDUACOLOR1 Yellow; EDUAGLUCOSE 1+ (Negative); EDUAKETONE 1+ (Negative); EDUALEUKO Negative (Negative); EDUANITRATE Negative (Negative); EDUAPH 5.5; EDUAPROTEIN Negative (Negative); EDUASPGRAVITY 1.025; EDUAUROBILI 0.2
== END 2025-07-04 09:36 | disposition home or self-care (01) ==
PROVIDERS: Emergency Provider Nurse Practitioner Family; PCP Physician Assistant
DX: J06.9 Acute upper respiratory infection, unspecified (principal); B34.9 Viral infection, unspecified; R09.82 Postnasal drip; E10.9 Type 1 diabetes mellitus without complications; Z79.4 Long term (current) use of insulin; Z20.822 Contact with and (suspected) exposure to COVID-19
CPT/HCPCS: 81003; 87081; 87426; 87804; 87880; 99213; G0463